=== PATIENT | male | born 1960 | race Caucasian/White ===

== ENCOUNTER → 2018-12-17 | Outpatient (CLI) | payer MEDICAID | END | disposition home or self-care (01) | LOC: Rad HDHVI 15:27 | PROVIDERS: ATTEND Internal Medicine | DX: J44.9 Chronic obstructive pulmonary disease, unspecified (principal); I50.9 Heart failure, unspecified; R07.9 Chest pain, unspecified | CPT/HCPCS: 93306 ==

== ENCOUNTER → 2019-02-04 | Outpatient (CLI) | payer MEDICAID ==
[~2019-02-04] VITALS: Ht 180.3 cm; Wt 77.6 kg
[~2019-02-04] MED LIST: ADENOSINE 65 MG in GIVE UN-DILUTED 0 ML IV ONE; ADENOSINE 90 MG/30 ML INJ IV ONE
== END | disposition home or self-care (01) ==
LOC: Rad HDHVI 09:08
PROVIDERS: ATTEND Internal Medicine
DX: R00.2 Palpitations (principal); I11.0 Hypertensive heart disease with heart failure; I50.9 Heart failure, unspecified; J44.9 Chronic obstructive pulmonary disease, unspecified; K21.9 Gastro-esophageal reflux disease without esophagitis; E78.5 Hyperlipidemia, unspecified
CPT/HCPCS: 78452; 93005; 96374; 96375; A9500; J0153

== ENCOUNTER → 2019-06-08 | Outpatient (CLI) | payer MEDICAID ==
[~2019-06-08] MED LIST changes: -ADENOSINE 65 MG in GIVE UN-DILUTED 0 ML IV ONE; -ADENOSINE 90 MG/30 ML INJ IV ONE; +ALBUAER3 IN; +ASPI-231 PO; +FLU220IH IN; +FLUO20CA19 PO; +OMEP20TA PO; +ONDA-144 PO
[2019-06-08 09:55] VITALS: BP 96/75
[2019-06-08 10:17] VITALS: BP 125/87
--- NOTE | 2019-06-08 10:17 | NUR ---
Pre-Op Discharge Summary: See e-MAR for any medications given for this visit. Pre-op orders received and carried out per MD of EKG, LABS and chest xrays. Patient given a copy of EKG with instructions to go to [facility] out patient for further follow up care.
[2019-06-08 12:26] LABS: Basophils # (auto) 0 uL; Eosinophils # (auto) 0 uL; Eosinophils % (auto) 0.8 % (0.0-7.0); Lymphocytes # (auto) 1.5 uL; Lymphocytes % (auto) 41.6 % (10.0-50.0); White Blood Cell 3.5 10^3/uL (4.4-10.8)
[2019-06-08 12:28] LABS: Hematocrit 37.6 % (41.0-53.0); Hemoglobin 13.1 g/dL (13.5-17.5); Mean Corpuscular Hemoglobin 39.3 pg (28.0-32.0); Mean Corpuscular Hgb Conc. 34.9 g/dL (32.0-36.0); Mean Corpuscular Volume 112.5 fL (80.0-100.0); Monocytes # (auto) 0.4 uL; Monocytes % (auto) 10.5 % (0.0-12.0); Neutrophils # (auto) 1.6 uL; Neutrophils % (auto) 46.1 % (37.0-80.0); Nucleated Red Blood Cells % 1.4 %; Platelet Count (auto) 149 10^3/uL (140-450); Red Blood Cells 3.34 10^6/uL (4.5-5.90)
[2019-06-08 12:37] LABS: INR 0.95 (0.9-1.15); Partial Thromboplastin Time 25.1 sec (23.64-32.05)
[2019-06-08 12:40] LABS: BUN/Creatinine Ratio 11.7; Calcium 8.8 mg/dL (8.5-10.1); Potassium 3.2 mmol/L (3.5-5.1)
== END | disposition home or self-care (01) ==
LOC: Rad HDHVI 09:33
PROVIDERS: ATTEND Internal Medicine
DX: Z01.812 Encounter for preprocedural laboratory examination (principal); I70.0 Atherosclerosis of aorta; I25.10 Atherosclerotic heart disease of native coronary artery without angina pectoris; J44.9 Chronic obstructive pulmonary disease, unspecified; I10 Essential (primary) hypertension
CPT/HCPCS: 36415; 71046; 80048; 85025; 85610; 85730; 93005; G0463

== ENCOUNTER 2019-06-09 08:31 | Day surgery (SDC) | payer MEDICAID ==
[~2019-06-09] VITALS: Ht 180.3 cm; Wt 62.6 kg
[2019-06-09] MEDS ORDERED: LIDOCAINE 2%HCL (LOCAL ANESTH.) INJ 20ML MDV ONE (08:54)
[2019-06-09] MEDS ORDERED: IOHEXOL 350 MG/ML 100ML IJ ONE (08:54)
[2019-06-09] MEDS ORDERED: MIDAZOLAM HCL 1MG/1ML-2 ML VIAL ONE (09:01)
[2019-06-09] MEDS ORDERED: ANGIOMAX 250 MG VIAL IV ONE (09:01)
[2019-06-09] MEDS ORDERED: SODIUM CHL 0.9% 0 ML ONE (09:01)
[2019-06-09] MEDS ORDERED: fentaNYL CITRATE 100 MCG/2 ML VL ONE (09:01)
[2019-06-09] MEDS ORDERED: ONDANSETRON HCL 4 MG/2 ML VIAL IV PRN (10:00)
[2019-06-09] MEDS ORDERED: HYDROcodone-ACET 5/325MG TAB PO PRN (10:00)
[2019-06-09] MEDS ORDERED: ACETAMINOPHEN 500 MG TAB PO PRN (10:00)
[2019-06-09] MEDS ORDERED: SODIUM CHL 0.9% 1,000 ML IV ONE (10:00)
== END 2019-06-09 12:05 | disposition home or self-care (01) ==
LOC: CATH 08:31
PROVIDERS: ATTEND Internal Medicine
DX: I42.8 Other cardiomyopathies (principal); K44.9 Diaphragmatic hernia without obstruction or gangrene; J44.9 Chronic obstructive pulmonary disease, unspecified; M21.372 Foot drop, left foot; Z87.891 Personal history of nicotine dependence; Z79.82 Long term (current) use of aspirin; Z79.899 Other long term (current) drug therapy
CPT/HCPCS: 93005; 93458; C1760; C1894; J1644; J2250; J3010; J7030; Q9967; 99152; 99153

== ENCOUNTER 2019-09-06 18:22 | Emergency (ER) | payer MEDICAID ==
[~2019-09-06] VITALS: Ht 180.3 cm; Wt 59.4 kg
[2019-09-06] MEDS ORDERED: SODIUM CHLORIDE 0.9% 1,000 ML IVB ONE (18:45)
[2019-09-06] MEDS ORDERED: MORPHINE SULFATE 4 MG/ML SYR/VIAL IV ONE (19:00)
[2019-09-06] MEDS ORDERED: ONDANSETRON HCL 4 MG/2 ML VIAL IV ONE (19:00)
[2019-09-06 19:12] LABS: Basophils # (auto) 0.1 uL; Eosinophils # (auto) 0 uL; Eosinophils % (auto) 0.1 % (0.0-7.0); Monocytes # (auto) 0.5 uL; Nucleated Red Blood Cells % 0.2 %
[2019-09-06 19:14] LABS: Basophils % (auto) 1.1 % (0.0-2.0); Hematocrit 40.9 % (41.0-53.0); Hemoglobin 14.2 g/dL (13.5-17.5); Lymphocytes # (auto) 1.3 uL; Lymphocytes % (auto) 21.1 % (10.0-50.0); Mean Corpuscular Hgb Conc. 34.7 g/dL (32.0-36.0); Mean Corpuscular Volume 112.3 fL (80.0-100.0); Monocytes % (auto) 7.7 % (0.0-12.0); Neutrophils # (auto) 4.3 uL; Platelet Count (auto) 193 10^3/uL (140-450); Red Blood Cells 3.64 10^6/uL (4.5-5.90); Red Cell Distribution Width 13.6 % (11.8-14.3); White Blood Cell 6.2 10^3/uL (4.4-10.8)
[2019-09-06 19:27] LABS: Albumin 3.3 g/dL (3.4-5.0); BUN/Creatinine Ratio 10.3; Calcium 9.2 mg/dL (8.5-10.1); Potassium 3.4 mmol/L (3.5-5.1)
[2019-09-06 19:31] LABS: Bilirubin, Total 0.6 mg/dL (0.2-1.0); Total Protein 7.7 g/dL (6.4-8.2)
[2019-09-06] MEDS ORDERED: PANTOPRAZOLE 40 MG/10 ML VIAL INJ IV ONE (19:45)
[2019-09-06 21:38] VITALS: BP 134/94
== END 2019-09-06 22:18 | disposition home or self-care (01) ==
LOC: ER 18:23
DX: K29.70 Gastritis, unspecified, without bleeding (principal); F10.129 Alcohol abuse with intoxication, unspecified; J44.9 Chronic obstructive pulmonary disease, unspecified; I10 Essential (primary) hypertension; R11.2 Nausea with vomiting, unspecified; Y90.9 Presence of alcohol in blood, level not specified
CPT/HCPCS: 36415; 76705; 80053; 80320; 83690; 85025; 93005; 96361; 96374; 96375; 99284; C9113; J2270; J2405

== ENCOUNTER 2020-01-22 11:45 | Inpatient (IN) | payer MEDICAID ==
[~2020-01-22] VITALS: Ht 180.3 cm; Wt 68.5 kg
[2020-01-22 13:21] LABS: Basophils # (auto) 0 10 ^3/uL (0-0.2); Eosinophils # (auto) 0 10 ^3/uL (0-0.8); Eosinophils % (auto) 0.7 % (0.0-7.0); Lymphocytes # (auto) 1.1 10 ^3/uL (0.4-5.4); Mean Corpuscular Volume 107.6 fL (80.0-100.0); Monocytes # (auto) 0.4 10 ^3/uL (0-1.3); Nucleated Red Blood Cells % 0.1 %
[2020-01-22 13:23] LABS: Basophils % (auto) 0.6 % (0.0-2.0); Hematocrit 38.1 % (41.0-53.0); Hemoglobin 13.1 g/dL (13.5-17.5); Lymphocytes % (auto) 22.2 % (10.0-50.0); Mean Corpuscular Hgb Conc. 34.4 g/dL (32.0-36.0); Monocytes % (auto) 7.2 % (0.0-12.0); Neutrophils # (auto) 3.6 10 ^3/uL (1.6-8.6); Neutrophils % (auto) 69.3 % (37.0-80.0); Platelet Count (auto) 103 10^3/uL (140-450); Red Blood Cells 3.54 10^6/uL (4.5-5.90); Red Cell Distribution Width 13.6 % (11.8-14.3); White Blood Cell 5.2 10^3/uL (4.4-10.8)
[2020-01-22 13:40] LABS: Albumin 3.3 g/dL (3.4-5.0); Anion Gap 8 (5-15); Blood Urea Nitrogen 19 mg/dL (7-18); Calcium 9.1 mg/dL (8.5-10.1); Carbon Dioxide 26 mmol/L (21-32); Chloride 103 mmol/L (98-107); Glucose 93 mg/dL (74-106); Magnesium 1.8 mg/dL (1.6-2.6); Potassium 3.3 mmol/L (3.5-5.1); Sodium 137 mmol/L (136-145)
[2020-01-22 13:45] LABS: Alanine Aminotransferase 299 U/L (16-61); Alkaline Phosphatase 72 U/L (45-117); Aspartate Aminotransferase 316 U/L (15-37); BUN/Creatinine Ratio 23.2; Bilirubin, Total 1.3 mg/dL (0.2-1.0); GFR African American 123 mL/min; GFR Non-African American 102 mL/min; Total Protein 7.5 g/dL (6.4-8.2)
[2020-01-22] MEDS ORDERED: HYDROcodone-ACET 5/325MG TAB PO ONE (15:00)
[2020-01-22] MEDS ORDERED: ASPirin 81 mg TAB PO ONE (15:00)
[2020-01-22 15:28] LABS: Urine Bacteria NONE SEEN /hpf (None Seen); Urine Blood Negative /uL (Negative); Urine Mucus FEW (None Seen); Urine Specific Gravity 1.038 (1.001-1.035); Urine WBC 1 /hpf (0 - 3)
[2020-01-22] MEDS ORDERED: POTASSIUM CHL 20 Meq TABLET PO ONE (15:30)
[2020-01-22] MEDS ORDERED: DOCUSATE SOD 100 MG CAP PO PRN (17:45)
[2020-01-22] MEDS ORDERED: ACETAMINOPHEN 500 MG TAB PO PRN (17:45)
[2020-01-22] MEDS ORDERED: MORPHINE SULF INJ 2 MG/ML SYRINGE 1ML IV PRN (17:45)
[2020-01-22] MEDS ORDERED: ONDANSETRON HCL 4 MG/2 ML VIAL IV PRN (17:45)
[2020-01-22] MEDS ORDERED: SOD CHL 0.9%/ KCL 20MEQ 1,000 ML IV ONE (17:45)
[2020-01-22] MEDS ORDERED: NITROGLYCERIN 0.4 MG SL TAB SL PRN (17:45)
[2020-01-22 19:40] VITALS: BP 126/96
[2020-01-22 20:00] VITALS: BP 112/76
[2020-01-22 21:55] VITALS: BP 112/76
[2020-01-22] MEDS: BUDESONIDE (INHALATION) 0.5 MG/2 ML NEB NEB SCH (22:28)
[2020-01-23 04:49] VITALS: BP 142/91
[2020-01-23] MEDS: HYDROcodone-ACET 5/325MG TAB PO PRN ×3 (06:22→22:23)
[2020-01-23 08:37] VITALS: BP 158/99
[2020-01-23] MEDS: FAMOTIDINE 20 MG TAB PO SCH (09:12)
[2020-01-23] MEDS: BUDESONIDE (INHALATION) 0.5 MG/2 ML NEB NEB SCH ×2 (09:17→22:13)
[2020-01-23] MEDS: ALBUTEROL SULF 2.5 MG/0.5ML(0.5%) NEB SOLN NEB PRN ×2 (09:29→22:13)
[2020-01-23] MEDS: IPRATROPIUM BROM 0.5 MG/2.5ML INH SOL NEB PRN ×2 (09:29→22:13)
[2020-01-23 12:46] VITALS: BP 145/96
[2020-01-23] MEDS ORDERED: hydrALAZINE HCL 20 MG/ML VL IV PRN (15:00)
[2020-01-23 16:41] VITALS: BP 104/56
[2020-01-23] MEDS: SUCRALFATE 1 GM/10 ML ORAL SUSP PO SCH ×2 (17:11→21:52)
[2020-01-23 22:00] VITALS: BP 148/91
[2020-01-24 05:00] VITALS: BP 111/92
[2020-01-24 05:23] LABS: Basophils # (auto) 0 10 ^3/uL (0-0.2); Lymphocytes # (auto) 1.2 10 ^3/uL (0.4-5.4); Mean Corpuscular Volume 108.7 fL (80.0-100.0); Monocytes # (auto) 0.5 10 ^3/uL (0-1.3); Neutrophils # (auto) 2.5 10 ^3/uL (1.6-8.6)
[2020-01-24 05:26] LABS: Eosinophils # (auto) 0 10 ^3/uL (0-0.8); Eosinophils % (auto) 1.1 % (0.0-7.0); Hematocrit 36.8 % (41.0-53.0); Hemoglobin 12.7 g/dL (13.5-17.5); Lymphocytes % (auto) 27.4 % (10.0-50.0); Mean Corpuscular Hemoglobin 37.6 pg (28.0-32.0); Mean Corpuscular Hgb Conc. 34.6 g/dL (32.0-36.0); Monocytes % (auto) 12.2 % (0.0-12.0); Neutrophils % (auto) 58.3 % (37.0-80.0); Platelet Count (auto) 102 10^3/uL (140-450); Red Blood Cells 3.39 10^6/uL (4.5-5.90); Red Cell Distribution Width 13.5 % (11.8-14.3); White Blood Cell 4.3 10^3/uL (4.4-10.8)
[2020-01-24 05:42] LABS: Calcium 8.8 mg/dL (8.5-10.1); Potassium 4.2 mmol/L (3.5-5.1)
[2020-01-24 05:48] LABS: BUN/Creatinine Ratio 17.9; Phosphorus 3.6 mg/dL (2.5-4.90)
[2020-01-24] MEDS: SUCRALFATE 1 GM/10 ML ORAL SUSP PO SCH ×4 (06:59→21:12)
[2020-01-24 07:27] VITALS: BP 151/104
[2020-01-24] MEDS: FAMOTIDINE 20 MG TAB PO SCH (08:47)
[2020-01-24] MEDS: HYDROcodone-ACET 5/325MG TAB PO PRN (08:48)
[2020-01-24] MEDS: IPRATROPIUM BROM 0.5 MG/2.5ML INH SOL NEB PRN ×2 (10:22→22:48)
[2020-01-24] MEDS: BUDESONIDE (INHALATION) 0.5 MG/2 ML NEB NEB SCH ×2 (10:22→22:48)
[2020-01-24] MEDS: ALBUTEROL SULF 2.5 MG/0.5ML(0.5%) NEB SOLN NEB PRN ×2 (10:22→22:48)
[2020-01-24] MEDS ORDERED: OMNIPAQUE ORAL SOLN 500ml 12mg/ml PO ONE (12:40)
[2020-01-24] MEDS ORDERED: IOHEXOL 300 MG/ML 100ML BOTTLE IJ ONE (12:41)
[2020-01-24 13:00] VITALS: BP 143/104
[2020-01-24 17:10] VITALS: BP 158/97
[2020-01-24] MEDS: MORPHINE SULF INJ 2 MG/ML SYRINGE 1ML IV PRN (21:12)
[2020-01-24 22:00] VITALS: BP 151/107
[2020-01-25] VITALS (7 sets, daily range): BP systolic 140–153; BP diastolic 93–108
[2020-01-25 05:11] LABS: Basophils # (auto) 0 10 ^3/uL (0-0.2); Basophils % (auto) 0.9 % (0.0-2.0); Eosinophils # (auto) 0 10 ^3/uL (0-0.8); Hematocrit 38.7 % (41.0-53.0); Lymphocytes # (auto) 1.2 10 ^3/uL (0.4-5.4); Mean Corpuscular Hemoglobin 36.9 pg (28.0-32.0); Neutrophils # (auto) 2.3 10 ^3/uL (1.6-8.6); White Blood Cell 4.1 10^3/uL (4.4-10.8)
[2020-01-25 05:13] LABS: Eosinophils % (auto) 0.8 % (0.0-7.0); Hemoglobin 13.1 g/dL (13.5-17.5); Lymphocytes % (auto) 29.2 % (10.0-50.0); Mean Corpuscular Hgb Conc. 33.9 g/dL (32.0-36.0); Mean Corpuscular Volume 108.7 fL (80.0-100.0); Monocytes # (auto) 0.6 10 ^3/uL (0-1.3); Monocytes % (auto) 13.6 % (0.0-12.0); Neutrophils % (auto) 55.5 % (37.0-80.0); Nucleated Red Blood Cells % 0.1 %; Platelet Count (auto) 139 10^3/uL (140-450); Red Blood Cells 3.56 10^6/uL (4.5-5.90); Red Cell Distribution Width 13.8 % (11.8-14.3)
[2020-01-25 05:34] LABS: Albumin 3.3 g/dL (3.4-5.0); Calcium 9.4 mg/dL (8.5-10.1); Magnesium 2.1 mg/dL (1.6-2.6); Potassium 4.3 mmol/L (3.5-5.1)
[2020-01-25 05:36] LABS: BUN/Creatinine Ratio 16.5
[2020-01-25 05:39] LABS: Total Protein 7.5 g/dL (6.4-8.2)
[2020-01-25] MEDS: IPRATROPIUM BROM 0.5 MG/2.5ML INH SOL NEB PRN (06:05)
[2020-01-25] MEDS: BUDESONIDE (INHALATION) 0.5 MG/2 ML NEB NEB SCH ×2 (06:06→19:28)
[2020-01-25] MEDS: ALBUTEROL SULF 2.5 MG/0.5ML(0.5%) NEB SOLN NEB PRN (06:06)
[2020-01-25] MEDS: SUCRALFATE 1 GM/10 ML ORAL SUSP PO SCH ×4 (06:33→22:34)
[2020-01-25 09:03] LABS: INR 1.03 (0.9-1.15); Partial Thromboplastin Time 25.4 sec (23.64-32.05)
[2020-01-25] MEDS ORDERED: ADENOSINE 61 MG in GIVE UN-DILUTED 0 ML IV STA (09:26)
[2020-01-25] MEDS: METOPROLOL TARTRATE 25 MG TAB PO SCH ×2 (10:41→22:34)
[2020-01-25] MEDS: FAMOTIDINE 20 MG TAB PO SCH (10:41)
[2020-01-25 14:03] LABS: Hepatitis A Ab IgM Negative; Hepatitis B Core IgM Negative
[2020-01-25 14:04] LABS: Hepatitis B Surface Antigen Negative (Negative)
[2020-01-25 14:05] LABS: Hepatitis C Antibody Positive (Negative)
[2020-01-25 18:24] LABS: Amphetamine Screen, Urine NEGATIVE (NEGATIVE); Barbiturate Scree,Urine NEGATIVE (NEGATIVE); Benzodiazephine Screen, Urine NEGATIVE (NEGATIVE); Cannabinoid Screen, Urine NEGATIVE (NEGATIVE); Cocaine Screen, Urine NEGATIVE (NEGATIVE); Opiate Scree,Urine NEGATIVE (NEGATIVE); Phencyclidine Screen, Urine NEGATIVE (NEGATIVE)
[2020-01-25] MEDS ORDERED: ATORVASTATIN 20 MG TAB PO SCH (22:00)
[2020-01-26 01:55] VITALS: BP 140/98
[2020-01-26 05:08] VITALS: BP 125/101
[2020-01-26 06:04] LABS: Potassium 4.3 mmol/L (3.5-5.1)
[2020-01-26 06:18] LABS: Albumin 3.3 g/dL (3.4-5.0); BUN/Creatinine Ratio 20.9; Calcium 9.5 mg/dL (8.5-10.1); Total Protein 7.5 g/dL (6.4-8.2)
[2020-01-26] MEDS: SUCRALFATE 1 GM/10 ML ORAL SUSP PO SCH ×2 (06:36→14:20)
[2020-01-26] MEDS: BUDESONIDE (INHALATION) 0.5 MG/2 ML NEB NEB SCH (06:59)
[2020-01-26] MEDS ORDERED: SODIUM CHLORIDE LOCK 10 ML ONE (08:24)
[2020-01-26] MEDS ORDERED: LIDOCAINE VISCOUS 2% 15ML UD ONE (08:24)
[2020-01-26] MEDS ORDERED: diphenhdrAMINE HCL 50 MG/1 ML VL ONE (08:25)
[2020-01-26] MEDS: MORPHINE SULF INJ 2 MG/ML SYRINGE 1ML IV PRN (08:47)
[2020-01-26 09:00] VITALS: BP 125/95
[2020-01-26 13:00] VITALS: BP 137/83
[2020-01-26] MEDS: MIDAZOLAM HCL 5 MG/ML-1ML VIAL ONE ×2 (13:22→13:25)
[2020-01-26] MEDS: fentaNYL CITRATE 100 MCG/2 ML VL ONE ×2 (13:22→13:24)
[2020-01-26] MEDS: METOPROLOL TARTRATE 25 MG TAB PO SCH (14:19)
[2020-01-26] MEDS: FAMOTIDINE 20 MG TAB PO SCH (14:19)
[2020-01-26 15:50] VITALS: BP 127/95
[2020-01-26] MEDS ORDERED: NYSTATIN (MOUTH-THROAT) 500,000 UNITS/5 ML SUSP MT SCH (18:00)
== END 2020-01-26 16:17 | disposition home or self-care (01) | DRG 241 ==
LOC: ER 11:45 → TELE 11:46 → TELE-WESTW 19:45
PROVIDERS: ADMIT Nurse Practitioner Acute Care; ATTEND Internal Medicine
PROC: 0DB88ZX Excision of Small Intestine, Via Natural or Artificial Opening Endoscopic, Diagnostic (ICD-10-PCS; 2020-01-26)
PROC: 0DB68ZX Excision of Stomach, Via Natural or Artificial Opening Endoscopic, Diagnostic (ICD-10-PCS; 2020-01-26)
PROC: 0DB58ZX Excision of Esophagus, Via Natural or Artificial Opening Endoscopic, Diagnostic (ICD-10-PCS; principal; 2020-01-26 13:30)
DX: K29.70 Gastritis, unspecified, without bleeding (principal); B37.81 Candidal esophagitis; D69.6 Thrombocytopenia, unspecified; R07.89 Other chest pain; K20.9 Esophagitis, unspecified; J44.9 Chronic obstructive pulmonary disease, unspecified; D53.9 Nutritional anemia, unspecified; E87.6 Hypokalemia; I10 Essential (primary) hypertension; K29.80 Duodenitis without bleeding; B19.20 Unspecified viral hepatitis C without hepatic coma; K21.9 Gastro-esophageal reflux disease without esophagitis; F41.9 Anxiety disorder, unspecified; F32.9 Major depressive disorder, single episode, unspecified; Z79.899 Other long term (current) drug therapy; Z79.82 Long term (current) use of aspirin; Z79.51 Long term (current) use of inhaled steroids; Z90.49 Acquired absence of other specified parts of digestive tract; Z87.891 Personal history of nicotine dependence; Z82.3 Family history of stroke; Z82.49 Family history of ischemic heart disease and other diseases of the circulatory system; Z03.818 Encounter for observation for suspected exposure to other biological agents ruled out
CPT/HCPCS: 36415; 71045; 74177; 76705; 78452; 80053; 80074; 80307; 81001; 83605; 83735; 83880; 84100; 84484; 85025; 85379; 85610; 85730; 86850; 86900; 86901; 87040; 87070; 87804; 87880; 93005; 93017; 93306; 94640; 96365; G0378; J0153; J2250; J2405

== ENCOUNTER → 2020-11-08 | Outpatient (CLI) | payer MEDICAID ==
[~2020-11-08] MED LIST changes: -OMEP20TA PO
== END | disposition home or self-care (01) ==
LOC: Rad HDHVI 10:07
PROVIDERS: ATTEND Internal Medicine
DX: I07.1 Rheumatic tricuspid insufficiency (principal); I35.8 Other nonrheumatic aortic valve disorders; I10 Essential (primary) hypertension; R07.9 Chest pain, unspecified
CPT/HCPCS: 93306

== ENCOUNTER → 2020-11-14 | Outpatient (CLI) | payer MEDICAID ==
[~2020-11-14] VITALS: Ht 180.3 cm; Wt 68.5 kg
[~2020-11-14] MED LIST changes: +ADENOSINE 58 MG in GIVE UN-DILUTED 0 ML IV ONE; +ADENOSINE 90 MG/30 ML INJ IV ONE
== END | disposition home or self-care (01) ==
LOC: Rad HDHVI 12:53
PROVIDERS: ATTEND Internal Medicine
DX: I11.0 Hypertensive heart disease with heart failure (principal); J98.11 Atelectasis; I27.20 Pulmonary hypertension, unspecified; I50.9 Heart failure, unspecified; R06.02 Shortness of breath; E78.5 Hyperlipidemia, unspecified; Z82.49 Family history of ischemic heart disease and other diseases of the circulatory system
CPT/HCPCS: 71046; 78452; 93005; 96374; 96375; A9500; J0153

== ENCOUNTER 2021-05-23 07:10 | Day surgery (SDC) | payer MEDICAID ==
[~2021-05-23] VITALS: Ht 180.3 cm; Wt 59.4 kg
[~2021-05-23 07:10] MED LIST changes: +ACLI1AER2 IN; -ADENOSINE 58 MG in GIVE UN-DILUTED 0 ML IV ONE; -ADENOSINE 90 MG/30 ML INJ IV ONE; +AMLO-489 PO; +ASCO100076 PO; -ASPI-231 PO; +ASPI-543 PO; +ATEN-60 PO; +CLON0.1T PO; +FLUO1TAB14 PO; -FLUO20CA19 PO; +HYDR-4072 PO; +LOSA-39 PO; +OMEP20TA PO; +POM PO; +RANO500T2 PO; +SENN8.6C PO; +ZINC50TA7 PO
[2021-05-23] MEDS ORDERED: IODIXANOL 320MG/ML 100ML BTL IV ONE (08:05)
[2021-05-23] MEDS ORDERED: LIDOCAINE 2%HCL (LOCAL ANESTH.) INJ 20ML MDV ONE (08:06)
[2021-05-23] MEDS ORDERED: fentaNYL CITRATE 100 MCG/2 ML VL ONE (08:09)
[2021-05-23] MEDS ORDERED: ANGIOMAX 250 MG VIAL IV ONE (08:09)
[2021-05-23] MEDS ORDERED: VERAPAMIL 2.5MG/ML INJ 2ML VIAL IV ONE (08:09)
[2021-05-23] MEDS ORDERED: HEPARIN SODIUM (PORCINE) 5000 UNITS/ML 1ML VIAL ONE (08:09)
[2021-05-23] MEDS ORDERED: MIDAZOLAM HCL 2MG/2ML 2ml VIAL (1mg/ml) ONE (08:10)
[2021-05-23] MEDS ORDERED: SODIUM CHL 0.9% 0 ML ONE (08:10)
[2021-05-23] MEDS ORDERED: ACETAMINOPHEN 500 MG TAB PO PRN (09:15)
[2021-05-23] MEDS ORDERED: HYDROcodone-ACET 5/325MG TAB PO PRN (09:15)
[2021-05-23] MEDS ORDERED: ONDANSETRON HCL 4 MG/2 ML VIAL IV PRN (09:15)
== END 2021-05-23 12:47 | disposition home or self-care (01) ==
LOC: CATH 07:10
PROVIDERS: ATTEND Internal Medicine
DX: R07.9 Chest pain, unspecified (principal); I25.10 Atherosclerotic heart disease of native coronary artery without angina pectoris; J43.9 Emphysema, unspecified; I10 Essential (primary) hypertension; E78.5 Hyperlipidemia, unspecified; F17.210 Nicotine dependence, cigarettes, uncomplicated; Z95.5 Presence of coronary angioplasty implant and graft; Z82.49 Family history of ischemic heart disease and other diseases of the circulatory system; Z20.822 Contact with and (suspected) exposure to COVID-19; Z98.890 Other specified postprocedural states; Z79.899 Other long term (current) drug therapy
CPT/HCPCS: 93458; C1769; C1887; C1894; J1644; J2250; J3010; J7030; Q9967; U0003; 99152

== ENCOUNTER → 2021-07-17 | Outpatient (CLI) | payer MEDICAID ==
[~2021-07-17] MED LIST changes: +MULTIPLE VIT 10 ML IV ONE; +MVI in SODIUM CHLORIDE 0.9% 500 ML IVB ONE; +ONDANSETRON HCL 4 MG/2 ML VIAL IM ONE; +ONDANSETRON HCL 4 MG/2 ML VIAL IV ONE; +ONDANSETRON HCL 4 MG/2 ML VIAL ONE
[2021-07-17 09:39] VITALS: BP 147/103
[2021-07-17 10:40] VITALS: BP 128/93
[2021-07-17 12:15] VITALS: BP 136/98
== END | disposition home or self-care (01) ==
LOC: CHF HDHVI 09:40
PROVIDERS: ATTEND Internal Medicine
DX: E86.0 Dehydration (principal); R53.83 Other fatigue; R11.0 Nausea; I10 Essential (primary) hypertension; I25.10 Atherosclerotic heart disease of native coronary artery without angina pectoris; J43.9 Emphysema, unspecified; E78.5 Hyperlipidemia, unspecified; Z79.899 Other long term (current) drug therapy; Z87.891 Personal history of nicotine dependence; Z95.5 Presence of coronary angioplasty implant and graft
CPT/HCPCS: 96365; 96366; 96375; G0463; J2405; J7040

== ENCOUNTER → 2021-09-04 | Outpatient (CLI) | payer MEDICAID ==
[~2021-09-04] MED LIST changes: -MULTIPLE VIT 10 ML IV ONE; -MVI in SODIUM CHLORIDE 0.9% 500 ML IVB ONE; -ONDANSETRON HCL 4 MG/2 ML VIAL IM ONE; -ONDANSETRON HCL 4 MG/2 ML VIAL IV ONE; -ONDANSETRON HCL 4 MG/2 ML VIAL ONE
== END | disposition home or self-care (01) ==
LOC: Rad HDHVI 08:28
PROVIDERS: ATTEND Internal Medicine
DX: I71.2 Thoracic aortic aneurysm, without rupture (principal); R00.2 Palpitations; R07.9 Chest pain, unspecified
CPT/HCPCS: 93306

== ENCOUNTER 2022-06-04 14:42 | Emergency (ER) | payer MEDICAID | END 2022-06-04 16:00 | disposition left against medical advice (07) | LOC: ER 14:42 | DX: R10.9 Unspecified abdominal pain (principal); Z53.21 Procedure and treatment not carried out due to patient leaving prior to being seen by health care provider ==

== ENCOUNTER 2022-06-08 14:19 | Inpatient (IN) | payer MEDICAID ==
[~2022-06-08] VITALS: Ht 180.3 cm; Wt 64.5 kg
[2022-06-08 14:56] LABS: Basophils # (auto) 0 10 ^3/uL (0-0.2); Basophils % (auto) 0.3 % (0.0-2.0); Eosinophils # (auto) 0 10 ^3/uL (0-0.8); Hematocrit 46.3 % (41.0-53.0); Hemoglobin 15.8 g/dL (13.5-17.5); Lymphocytes # (auto) 1.3 10 ^3/uL (0.4-5.4); Lymphocytes % (auto) 8.4 % (10.0-50.0); Mean Corpuscular Hemoglobin 36.8 pg (28.0-32.0); Mean Corpuscular Hgb Conc. 34.1 g/dL (32.0-36.0); Monocytes # (auto) 0.8 10 ^3/uL (0-1.3); Monocytes % (auto) 5.1 % (0.0-12.0); Neutrophils % (auto) 86.2 % (37.0-80.0); Red Blood Cells 4.29 10^6/uL (4.5-5.90); Red Cell Distribution Width 14.3 % (11.8-14.3); White Blood Cell 15.1 10^3/uL (4.4-10.8)
[2022-06-08 15:16] LABS: Albumin 4.2 g/dL (3.4-5.0); Calcium 10.8 mg/dL (8.5-10.1); Potassium 4.2 mmol/L (3.5-5.1)
[2022-06-08 15:19] LABS: BUN/Creatinine Ratio 22.7; Bilirubin, Total 1.3 mg/dL (0.2-1.0); Total Protein 8.9 g/dL (6.4-8.2)
[2022-06-08] MEDS ORDERED: FAMOTIDINE (10MG/ML) 2ML VL IV ONE (15:45)
[2022-06-08] MEDS ORDERED: ONDANSETRON ODT 4 MG TAB PO ONE (15:45)
[2022-06-08] MEDS ORDERED: ACETAMINOPHEN 325 MG TAB PO PRN (19:45)
[2022-06-08] MEDS ORDERED: CEFTRIAXONE SODIUM 2 GM in D5W 5% 50 ML IV ONE (19:45)
[2022-06-08] MEDS ORDERED: ALBUTEROL SULF 2.5 MG/0.5ML(0.5%) NEB SOLN NEB PRN (19:45)
[2022-06-08] MEDS ORDERED: SODIUM CHLORIDE 0.9% 1,000 ML IV SCH (19:45)
[2022-06-08] MEDS ORDERED: FAMOTIDINE 20 MG TAB PO ONE (19:45)
[2022-06-08] MEDS ORDERED: cloNIDine HCL 0.1 MG TAB PO PRN (19:45)
[2022-06-08] MEDS ORDERED: ONDANSETRON HCL 4 MG/2 ML VIAL IV PRN (19:45)
[2022-06-08] MEDS ORDERED: DOCUSATE SOD 100 MG CAP PO PRN (19:45)
[2022-06-08] MEDS ORDERED: ALBUTEROL SULF 2.5 MG/0.5ML(0.5%) NEB SOLN NEB SCH (20:00)
[2022-06-08 20:18] VITALS: BP 136/95
[2022-06-08 20:38] LABS: Cholesterol 233 mg/dL (< 200)
[2022-06-08 20:41] LABS: HDL Cholesterol 126 mg/dL (40-59); LDL Cholesterol 101 mg/dL (< 100); Triglycerides 106 mg/dL (< 150)
[2022-06-08] MEDS ORDERED: methylPREDNISolone SOD SUCC 40 MG/ML VL IV SCH (22:00)
[2022-06-09] MEDS ORDERED: ALBUTEROL SULF 2.5 MG/0.5ML(0.5%) NEB SOLN NEB SCH
[2022-06-09] MEDS: SODIUM CHLORIDE 0.9% 1,000 ML IV SCH ×4 (00:15→18:40)
[2022-06-09] MEDS: methylPREDNISolone SOD SUCC 40 MG/ML VL IV SCH ×4 (00:21→22:18)
[2022-06-09] MEDS: ASCORBIC ACID 1,000 MG TAB PO SCH ×3 (00:21→22:19)
[2022-06-09] MEDS: ATENOLOL 25 MG TAB PO SCH ×2 (00:22→09:37)
[2022-06-09] MEDS: RANOLAZINE ER 500 MG TAB PO SCH ×3 (00:22→22:19)
[2022-06-09] MEDS ORDERED: MORPHINE SULFATE INJ 2 MG/ml SYRG IV PRN (01:30)
[2022-06-09] MEDS ORDERED: NITROGLYCERIN 0.4 MG SL TAB SL PRN (01:30)
[2022-06-09 02:30] LABS: Urine Bacteria NONE SEEN /hpf (None Seen); Urine Blood Negative /uL (Negative); Urine Hyaline Cast FEW /lpf (0 - 2); Urine Mucus FEW (None Seen); Urine Specific Gravity 1.014 (1.001-1.035); Urine WBC <1 /hpf (0 - 3)
[2022-06-09 05:18] LABS: Basophils # (auto) 0 10 ^3/uL (0-0.2); Basophils % (auto) 0.1 % (0.0-2.0); Eosinophils # (auto) 0 10 ^3/uL (0-0.8); Hematocrit 41.8 % (41.0-53.0); Hemoglobin 14.7 g/dL (13.5-17.5); Lymphocytes # (auto) 0.5 10 ^3/uL (0.4-5.4); Lymphocytes % (auto) 5.3 % (10.0-50.0); Mean Corpuscular Hemoglobin 38.1 pg (28.0-32.0); Mean Corpuscular Hgb Conc. 35.2 g/dL (32.0-36.0); Mean Corpuscular Volume 108.1 fL (80.0-100.0); Monocytes # (auto) 0.2 10 ^3/uL (0-1.3); Monocytes % (auto) 2.1 % (0.0-12.0); Neutrophils # (auto) 9.6 10 ^3/uL (1.6-8.6); Neutrophils % (auto) 92.5 % (37.0-80.0); Red Blood Cells 3.86 10^6/uL (4.5-5.90); Red Cell Distribution Width 14.3 % (11.8-14.3); White Blood Cell 10.4 10^3/uL (4.4-10.8)
[2022-06-09 05:34] LABS: Albumin 3.8 g/dL (3.4-5.0); Calcium 10.6 mg/dL (8.5-10.1); Potassium 4.8 mmol/L (3.5-5.1)
[2022-06-09 05:37] LABS: BUN/Creatinine Ratio 33.9; Bilirubin, Total 0.9 mg/dL (0.2-1.0); Total Protein 8.6 g/dL (6.4-8.2)
[2022-06-09] MEDS: ALBUTEROL SULF 2.5 MG/0.5ML(0.5%) NEB SOLN NEB SCH ×4 (06:15→18:54)
[2022-06-09] MEDS: IPRATROPIUM BROM 0.5 MG/2.5ML INH SOL NEB SCH ×4 (06:15→18:54)
[2022-06-09] MEDS ORDERED: LOSARTAN POTASSIUM 50 MG TAB PO SCH (10:00)
[2022-06-09] MEDS ORDERED: CEFTRIAXONE SODIUM 2 GM in D5W 5% 50 ML IV SCH (10:00)
[2022-06-09] MEDS ORDERED: ENOXAPARIN SOD 40 MG/0.4 ML SYRINGE SC SCH (10:00)
[2022-06-09] MEDS ORDERED: amLODIPine BESYLATE 5 MG TAB PO SCH (10:00)
[2022-06-09] MEDS ORDERED: FLUoxetine HCL 20 MG CAP PO SCH (10:00)
[2022-06-09] MEDS ORDERED: ASPirin-EC 81 mg tab PO SCH (10:00)
[2022-06-09 22:25] VITALS: BP 127/85
[2022-06-10] MEDS: ALBUTEROL SULF 2.5 MG/0.5ML(0.5%) NEB SOLN NEB SCH ×3 (00:45→09:08)
[2022-06-10] MEDS: IPRATROPIUM BROM 0.5 MG/2.5ML INH SOL NEB SCH ×3 (00:45→09:08)
[2022-06-10] MEDS: SODIUM CHLORIDE 0.9% 1,000 ML IV SCH (01:20)
[2022-06-10 05:00] VITALS: BP 111/85
[2022-06-10] MEDS: methylPREDNISolone SOD SUCC 40 MG/ML VL IV SCH (05:59)
== END 2022-06-10 08:30 | disposition left against medical advice (07) | DRG 469 ==
LOC: ER 14:19 → OVERFLOW 06-09 01:18 → EAST 06-09 20:48
PROVIDERS: ADMIT Nurse Practitioner Family; ATTEND Nurse Practitioner Family
DX: N17.9 Acute kidney failure, unspecified (principal); K85.90 Acute pancreatitis without necrosis or infection, unspecified; K92.2 Gastrointestinal hemorrhage, unspecified; K76.0 Fatty (change of) liver, not elsewhere classified; E87.1 Hypo-osmolality and hyponatremia; Z99.81 Dependence on supplemental oxygen; I10 Essential (primary) hypertension; D72.829 Elevated white blood cell count, unspecified; E78.5 Hyperlipidemia, unspecified; E83.52 Hypercalcemia; R07.89 Other chest pain; I20.9 Angina pectoris, unspecified; Z53.29 Procedure and treatment not carried out because of patient's decision for other reasons; F32.A Depression, unspecified; F41.9 Anxiety disorder, unspecified; K21.9 Gastro-esophageal reflux disease without esophagitis; J44.9 Chronic obstructive pulmonary disease, unspecified; Z20.822 Contact with and (suspected) exposure to COVID-19; K80.20 Calculus of gallbladder without cholecystitis without obstruction; N40.0 Benign prostatic hyperplasia without lower urinary tract symptoms; Z79.899 Other long term (current) drug therapy; Z82.3 Family history of stroke; Z82.49 Family history of ischemic heart disease and other diseases of the circulatory system; Z87.891 Personal history of nicotine dependence; Z90.49 Acquired absence of other specified parts of digestive tract
CPT/HCPCS: 36415; 71046; 74176; 80053; 80061; 80320; 81001; 83690; 84443; 84484; 85025; 85049; 87040; 94640; 96365; 96372; 96375; G0378; J0696; J2405; J7060; Q0162

== ENCOUNTER 2022-06-11 14:46 | Inpatient (IN) | payer MEDICAID ==
[~2022-06-11] VITALS: Ht 180.3 cm; Wt 75.5 kg
[~2022-06-11 14:46] MED LIST changes: -ZINC50TA7 PO
[2022-06-11] MEDS ORDERED: SODIUM CHLORIDE 0.9% 500 ML IV ONE (15:15)
[2022-06-11 15:36] LABS: Basophils # (auto) 0 10 ^3/uL (0-0.2); Basophils % (auto) 0.4 % (0.0-2.0); Eosinophils # (auto) 0 10 ^3/uL (0-0.8); Eosinophils % (auto) 0.1 % (0.0-7.0); Hematocrit 42.5 % (41.0-53.0); Hemoglobin 14.4 g/dL (13.5-17.5); Lymphocytes # (auto) 1.4 10 ^3/uL (0.4-5.4); Lymphocytes % (auto) 17.6 % (10.0-50.0); Mean Corpuscular Hemoglobin 36.9 pg (28.0-32.0); Mean Corpuscular Hgb Conc. 33.9 g/dL (32.0-36.0); Mean Corpuscular Volume 108.7 fL (80.0-100.0); Monocytes # (auto) 0.6 10 ^3/uL (0-1.3); Monocytes % (auto) 7.9 % (0.0-12.0); Neutrophils # (auto) 5.8 10 ^3/uL (1.6-8.6); Nucleated Red Blood Cells % 0.1 %; Red Blood Cells 3.91 10^6/uL (4.5-5.90); Red Cell Distribution Width 14.1 % (11.8-14.3); White Blood Cell 7.9 10^3/uL (4.4-10.8)
[2022-06-11 15:49] LABS: INR 1.03 (0.9-1.15); Partial Thromboplastin Time 24.6 sec (24.6-33.4)
[2022-06-11 15:53] LABS: Albumin 3.4 g/dL (3.4-5.0); Calcium 10.1 mg/dL (8.5-10.1); Magnesium 2.9 mg/dL (1.6-2.6); Potassium 3.7 mmol/L (3.5-5.1)
[2022-06-11 15:56] LABS: BUN/Creatinine Ratio 29.8; Bilirubin, Total 0.8 mg/dL (0.2-1.0); Total Protein 7.2 g/dL (6.4-8.2)
[2022-06-11] MEDS ORDERED: ACETAMINOPHEN 325 MG TAB PO PRN (17:15)
[2022-06-11] MEDS ORDERED: ONDANSETRON HCL 4 MG/2 ML VIAL IV PRN (17:15)
[2022-06-11] MEDS ORDERED: PANTOPRAZOLE 40 MG/10 ML VIAL INJ IV ONE (17:15)
[2022-06-11] MEDS ORDERED: SODIUM CHLORIDE 0.9% 1,000 ML IV SCH (17:15)
[2022-06-11] MEDS ORDERED: ALBUTEROL SULF 2.5 MG/0.5ML(0.5%) NEB SOLN NEB PRN ×2 (18:15→19:15)
[2022-06-11] MEDS ORDERED: ALBUTEROL SULF 2.5 MG/0.5ML(0.5%) NEB SOLN NEB SCH (18:15)
[2022-06-11] MEDS ORDERED: cloNIDine HCL 0.1 MG TAB PO PRN (18:30)
[2022-06-11 20:12] VITALS: BP 147/105
[2022-06-11] MEDS: RANOLAZINE ER 500 MG TAB PO SCH (22:24)
[2022-06-11 22:25] VITALS: BP 150/95
[2022-06-11] MEDS: ATENOLOL 25 MG TAB PO SCH (22:25)
[2022-06-11] MEDS: ASCORBIC ACID 1,000 MG TAB PO SCH (22:25)
[2022-06-11] MEDS: MORPHINE SULFATE INJ 2 MG/ml SYRG IV PRN (22:26)
[2022-06-12] MEDS: IPRATROPIUM BROM 0.5 MG/2.5ML INH SOL NEB SCH ×4 (00:20→18:00)
[2022-06-12] MEDS: ALBUTEROL SULF 2.5 MG/0.5ML(0.5%) NEB SOLN NEB SCH ×4 (00:20→18:00)
[2022-06-12 05:00] VITALS: BP 107/78
[2022-06-12 06:22] LABS: Potassium 3.3 mmol/L (3.5-5.1)
[2022-06-12 06:24] LABS: Basophils # (auto) 0 10 ^3/uL (0-0.2); Eosinophils # (auto) 0 10 ^3/uL (0-0.8); Eosinophils % (auto) 0.4 % (0.0-7.0); Hematocrit 35.9 % (41.0-53.0); Hemoglobin 12.7 g/dL (13.5-17.5); Lymphocytes # (auto) 1.8 10 ^3/uL (0.4-5.4); Lymphocytes % (auto) 29.1 % (10.0-50.0); Mean Corpuscular Hemoglobin 38.3 pg (28.0-32.0); Mean Corpuscular Hgb Conc. 35.3 g/dL (32.0-36.0); Mean Corpuscular Volume 108.6 fL (80.0-100.0); Monocytes # (auto) 0.7 10 ^3/uL (0-1.3); Monocytes % (auto) 11.5 % (0.0-12.0); Neutrophils # (auto) 3.6 10 ^3/uL (1.6-8.6); Nucleated Red Blood Cells % 0.2 %; Red Blood Cells 3.31 10^6/uL (4.5-5.90); Red Cell Distribution Width 14.1 % (11.8-14.3); White Blood Cell 6.2 10^3/uL (4.4-10.8)
[2022-06-12 06:28] LABS: Albumin 2.7 g/dL (3.4-5.0); BUN/Creatinine Ratio 31.2; Calcium 8.4 mg/dL (8.5-10.1)
[2022-06-12 06:31] LABS: Bilirubin, Total 0.7 mg/dL (0.2-1.0); Total Protein 5.8 g/dL (6.4-8.2)
[2022-06-12 06:42] LABS: Urine Bacteria NONE SEEN /hpf (None Seen); Urine Blood Negative /uL (Negative); Urine Hyaline Cast FEW /lpf (0 - 2); Urine Mucus FEW (None Seen); Urine Specific Gravity 1.024 (1.001-1.035); Urine WBC 3 /hpf (0 - 3)
[2022-06-12 06:55] LABS: Alcohol, Urine < 3.0 mg/dL (0-10); Amphetamine Screen, Urine NEGATIVE (NEGATIVE); Barbiturate Scree,Urine NEGATIVE (NEGATIVE); Benzodiazephine Screen, Urine NEGATIVE (NEGATIVE); Cannabinoid Screen, Urine NEGATIVE (NEGATIVE); Cocaine Screen, Urine NEGATIVE (NEGATIVE); Opiate Scree,Urine POSITIVE (NEGATIVE); Phencyclidine Screen, Urine NEGATIVE (NEGATIVE)
[2022-06-12 08:30] VITALS: BP 125/85
[2022-06-12] MEDS ORDERED: amLODIPine BESYLATE 5 MG TAB PO SCH (10:00)
[2022-06-12] MEDS ORDERED: LOSARTAN POTASSIUM 50 MG TAB PO SCH (10:00)
[2022-06-12] MEDS: ATENOLOL 25 MG TAB PO SCH ×2 (10:00→22:00)
[2022-06-12] MEDS ORDERED: ENOXAPARIN SOD 40 MG/0.4 ML SYRINGE SC SCH (10:00)
[2022-06-12] MEDS: PANTOPRAZOLE 40 MG/10 ML VIAL INJ IV SCH (10:19)
[2022-06-12] MEDS: ASPirin-EC 81 mg tab PO SCH (10:24)
[2022-06-12] MEDS: FLUoxetine HCL 20 MG CAP PO SCH (10:25)
[2022-06-12] MEDS: RANOLAZINE ER 500 MG TAB PO SCH ×2 (10:26→22:18)
[2022-06-12] MEDS: ASCORBIC ACID 1,000 MG TAB PO SCH (10:27)
[2022-06-12] MEDS: HYDROcodone-ACET 5/325MG TAB PO PRN (10:33)
[2022-06-12] MEDS: SODIUM CHLORIDE 0.9% 1,000 ML IV SCH (11:00)
[2022-06-12] MEDS ORDERED: THIAMINE 100mg/ml INJ (200mg/2ml VIAL) IV ONE (11:00)
[2022-06-12] MEDS ORDERED: POTASSIUM CHL 20 Meq TABLET PO ONE (11:00)
[2022-06-12] MEDS ORDERED: TAMS0.4C36 PO (13:11)
[2022-06-12] MEDS ORDERED: ROSU40TA PO (13:11)
[2022-06-12] MEDS ORDERED: AMLO-496 PO (13:11)
[2022-06-12] MEDS ORDERED: RANO500T3 PO (13:14)
[2022-06-12] MEDS ORDERED: POTA-180 PO (13:16)
[2022-06-12] MEDS ORDERED: PANT40TA2 PO (13:16)
[2022-06-12] MEDS ORDERED: TRAZ50TA2 PO (13:16)
[2022-06-12 13:30] VITALS: BP 122/85
[2022-06-12 16:30] VITALS: BP 82/62
[2022-06-12 20:00] VITALS: BP 100/66
[2022-06-12 21:30] VITALS: BP 91/62
[2022-06-13] MEDS: ALBUTEROL SULF 2.5 MG/0.5ML(0.5%) NEB SOLN NEB SCH ×4 (00:08→18:04)
[2022-06-13] MEDS: IPRATROPIUM BROM 0.5 MG/2.5ML INH SOL NEB SCH ×4 (00:08→18:04)
[2022-06-13] MEDS: SODIUM CHLORIDE 0.9% 1,000 ML IV SCH ×2 (00:35→16:05)
[2022-06-13 05:00] VITALS: BP 114/78
[2022-06-13 06:20] LABS: Potassium 3.5 mmol/L (3.5-5.1)
[2022-06-13 06:28] LABS: Albumin 2.4 g/dL (3.4-5.0); BUN/Creatinine Ratio 21.3; Bilirubin, Total 0.6 mg/dL (0.2-1.0); Calcium 8.5 mg/dL (8.5-10.1); Magnesium 2.4 mg/dL (1.6-2.6); Total Protein 5.4 g/dL (6.4-8.2)
[2022-06-13 08:00] VITALS: BP 104/78
[2022-06-13] MEDS: ASPirin-EC 81 mg tab PO SCH (08:27)
[2022-06-13] MEDS: HYDROcodone-ACET 5/325MG TAB PO PRN ×2 (08:27→16:05)
[2022-06-13] MEDS: RANOLAZINE ER 500 MG TAB PO SCH ×2 (08:27→21:52)
[2022-06-13] MEDS: FLUoxetine HCL 20 MG CAP PO SCH (08:27)
[2022-06-13] MEDS: THIAMINE 100mg/ml INJ (200mg/2ml VIAL) IV SCH (08:28)
[2022-06-13] MEDS: PANTOPRAZOLE 40 MG/10 ML VIAL INJ IV SCH (08:34)
[2022-06-13] MEDS: ATENOLOL 25 MG TAB PO SCH (08:34)
[2022-06-13 09:00] VITALS: BP 109/64
[2022-06-13 13:00] VITALS: BP 104/78
[2022-06-13 16:30] VITALS: BP 102/74
[2022-06-13] MEDS: MORPHINE SULFATE INJ 2 MG/ml SYRG IV PRN (21:47)
[2022-06-13 22:00] VITALS: BP 124/87
[2022-06-13] MEDS ORDERED: ATORVASTATIN 20 MG TAB PO SCH (22:00)
[2022-06-14] MEDS: ALBUTEROL SULF 2.5 MG/0.5ML(0.5%) NEB SOLN NEB SCH ×3 (00:10→12:02)
[2022-06-14] MEDS: IPRATROPIUM BROM 0.5 MG/2.5ML INH SOL NEB SCH ×3 (00:10→12:02)
[2022-06-14] MEDS: SODIUM CHLORIDE 0.9% 1,000 ML IV SCH (03:17)
[2022-06-14 05:00] VITALS: BP 121/82
[2022-06-14 08:00] VITALS: BP 134/90
[2022-06-14] MEDS: FLUoxetine HCL 20 MG CAP PO SCH (08:49)
[2022-06-14] MEDS: RANOLAZINE ER 500 MG TAB PO SCH (08:49)
[2022-06-14] MEDS: THIAMINE 100mg/ml INJ (200mg/2ml VIAL) IV SCH (08:49)
[2022-06-14] MEDS: MORPHINE SULFATE INJ 2 MG/ml SYRG IV PRN ×2 (08:50→12:24)
[2022-06-14 09:00] VITALS: BP 134/90
[2022-06-14] MEDS ORDERED: AMLO-496 PO (11:20)
[2022-06-14] MEDS ORDERED: ALBUAER3 IN (11:20)
[2022-06-14] MEDS ORDERED: ROSU40TA PO (11:20)
[2022-06-14] MEDS ORDERED: FLUO20CA90 PO (11:20)
[2022-06-14] MEDS ORDERED: PANT40TA2 PO (11:20)
[2022-06-14] MEDS ORDERED: TAM04C PO (11:20)
[2022-06-14] MEDS ORDERED: RANO500T PO (11:20)
[2022-06-14] MEDS ORDERED: TRAZ50TA2 PO (11:20)
[2022-06-14 12:36] VITALS: BP 98/74
[2022-06-14 13:30] VITALS: BP 110/68
== END 2022-06-14 13:50 | disposition home or self-care (01) | DRG 282 ==
LOC: ER 14:46 → OVERFLOW 17:15 → EAST 21:35
PROVIDERS: ADMIT Nurse Practitioner Family; ATTEND Internal Medicine
DX: K85.20 Alcohol induced acute pancreatitis without necrosis or infection (principal); J96.10 Chronic respiratory failure, unspecified whether with hypoxia or hypercapnia; N17.9 Acute kidney failure, unspecified; J84.10 Pulmonary fibrosis, unspecified; K74.60 Unspecified cirrhosis of liver; E87.1 Hypo-osmolality and hyponatremia; J44.9 Chronic obstructive pulmonary disease, unspecified; F41.9 Anxiety disorder, unspecified; I10 Essential (primary) hypertension; E78.5 Hyperlipidemia, unspecified; B19.20 Unspecified viral hepatitis C without hepatic coma; Z20.822 Contact with and (suspected) exposure to COVID-19; F32.A Depression, unspecified; F10.10 Alcohol abuse, uncomplicated
CPT/HCPCS: 36415; 71045; 80053; 80307; 81001; 83690; 83735; 83880; 84484; 85025; 85610; 85652; 85730; 86141; 87426; 93005; 94640; 96361; 96374; C9113; G0378

== ENCOUNTER → 2022-08-13 | Outpatient (CLI) | payer MEDICAID ==
[~2022-08-13] VITALS: Ht 180.3 cm; Wt 63.5 kg
[~2022-08-13] MED LIST changes: +ADENOSINE 53 MG in GIVE UN-DILUTED 0 ML IV ONE; +ADENOSINE 90 MG/30 ML INJ IV ONE; -AMLO-489 PO; +AMLO-496 PO; -ASCO100076 PO; -ASPI-543 PO; -ATEN-60 PO; -FLU220IH IN; -FLUO1TAB14 PO; +FLUO20CA90 PO; -HYDR-4072 PO; -OMEP20TA PO; -ONDA-144 PO; +PANT40TA2 PO; -POM PO; +POTA-180 PO; +RANO500T PO; -RANO500T2 PO; +RANO500T3 PO; +ROSU40TA PO; -SENN8.6C PO; +TAM04C PO; +TAMS0.4C36 PO; +TRAZ50TA2 PO
== END | disposition home or self-care (01) ==
LOC: Rad HDHVI 08:03
PROVIDERS: ATTEND Internal Medicine
DX: I25.110 Atherosclerotic heart disease of native coronary artery with unstable angina pectoris (principal); I10 Essential (primary) hypertension; J44.9 Chronic obstructive pulmonary disease, unspecified; R06.02 Shortness of breath; Z79.899 Other long term (current) drug therapy
CPT/HCPCS: 78452; 93005; 96374; 96375; A9500; J0153

== ENCOUNTER 2023-04-29 15:22 | Inpatient (IN) | payer MEDICAID ==
[~2023-04-29] VITALS: Ht 180.3 cm; Wt 72.7 kg
[~2023-04-29 15:22] MED LIST changes: -ACLI1AER2 IN; +ACLI400A5 IN; -ADENOSINE 53 MG in GIVE UN-DILUTED 0 ML IV ONE; -ADENOSINE 90 MG/30 ML INJ IV ONE; -AMLO-496 PO; +AMLO1TAB23 PO; -LOSA-39 PO; +LOSA100T58 PO; -ROSU40TA PO; +ROSU40TA81 PO; -TAM04C PO; +TAMS-35 PO; +TRAZ-227 PO; -TRAZ50TA2 PO
[2023-04-29 16:43] LABS: Basophils # (auto) 0.1 10 ^3/uL (0-0.2); Eosinophils # (auto) 0 10 ^3/uL (0-0.8); Eosinophils % (auto) 0.1 % (0.0-7.0); Lymphocytes # (auto) 1.2 10 ^3/uL (0.4-5.4); Mean Corpuscular Hemoglobin 39.8 pg (28.0-32.0)
[2023-04-29 16:45] LABS: Basophils % (auto) 0.8 % (0.0-2.0); Hematocrit 29.7 % (41.0-53.0); Hemoglobin 10.2 g/dL (13.5-17.5); Lymphocytes % (auto) 11.9 % (10.0-50.0); Mean Corpuscular Hgb Conc. 34.3 g/dL (32.0-36.0); Monocytes # (auto) 0.7 10 ^3/uL (0-1.3); Monocytes % (auto) 7.5 % (0.0-12.0); Neutrophils # (auto) 7.8 10 ^3/uL (1.6-8.6); Neutrophils % (auto) 79.7 % (37.0-80.0); Red Blood Cells 2.56 10^6/uL (4.5-5.90); White Blood Cell 9.8 10^3/uL (4.4-10.8)
[2023-04-29 16:59] LABS: INR 1.16 (0.9-1.15); Partial Thromboplastin Time 28.4 SEC (24.5-34.5); Prothrombin Time 12.1 sec (9.3-11.8)
[2023-04-29 17:09] LABS: Alanine Aminotransferase 37 U/L (7-40); Albumin 3.2 g/dL (3.2-4.8); Alkaline Phosphatase 101 U/L (46-116); Anion Gap 15.4 (5-15); Aspartate Aminotransferase 94 U/L (13-40); BUN/Creatinine Ratio 17.9 (10.0-20.0); Bilirubin, Total 0.7 mg/dL (0.2-1.0); Blood Urea Nitrogen 10 mg/dL (9-23); Calcium 8.3 mg/dL (8.7-10.4); Carbon Dioxide 19.6 mmol/L (20-30); Chloride 102 mmol/L (98-107); Glucose 79 mg/dL (74-106); Potassium 3.5 mmol/L (3.5-5.1); Sodium 137 mmol/L (136-145); Total Protein 5.9 g/dL (5.7-8.2)
[2023-04-29 17:10] LABS: Hypochromia Slight; Macrocytosis Moderate; Platelet Estimate Adequate
[2023-04-29] MEDS ORDERED: SODIUM CHLORIDE 0.9% 1,000 ML IV ONE (19:00)
[2023-04-29] MEDS ORDERED: IOHEXOL 350 MG/ML 100ML IJ ONE (20:55)
[2023-04-29] MEDS ORDERED: NITROGLYCERIN 0.4 MG SL TAB SL PRN (22:30)
[2023-04-29] MEDS: SODIUM CHLORIDE 0.9% 1,000 ML IV SCH (22:30)
[2023-04-29] MEDS ORDERED: ACETAMINOPHEN 325 MG TAB PO PRN (22:30)
[2023-04-30] VITALS (7 sets, daily range): BP systolic 110; BP diastolic 87; PULSE 96–115; RESP 15–18; TEMP 99; O2SAT 93–98
[2023-04-30] MEDS ORDERED: HYDROcodone-ACET 5/325MG TAB PO PRN
[2023-04-30] MEDS: ONDANSETRON HCL 4 MG/2 ML VIAL IV PRN ×3 (03:00→14:51)
[2023-04-30] MEDS: MORPHINE SULFATE INJ 2 MG/ml SYRG IV PRN ×2 (03:00→14:52)
[2023-04-30 05:45] LABS: Basophils # (auto) 0 10 ^3/uL (0-0.2); Basophils % (auto) 0.4 % (0.0-2.0); Eosinophils # (auto) 0 10 ^3/uL (0-0.8); Hemoglobin 10.3 g/dL (13.5-17.5); Monocytes # (auto) 0.7 10 ^3/uL (0-1.3); Monocytes % (auto) 6.8 % (0.0-12.0); Neutrophils # (auto) 8.4 10 ^3/uL (1.6-8.6); Nucleated Red Blood Cells % 0.1 %; White Blood Cell 10.4 10^3/uL (4.4-10.8)
[2023-04-30 05:49] LABS: Hematocrit 29.8 % (41.0-53.0); Lymphocytes # (auto) 1.3 10 ^3/uL (0.4-5.4); Lymphocytes % (auto) 12.6 % (10.0-50.0); Mean Corpuscular Hemoglobin 40.3 pg (28.0-32.0); Mean Corpuscular Hgb Conc. 34.5 g/dL (32.0-36.0); Mean Corpuscular Volume 116.7 fL (80.0-100.0); Neutrophils % (auto) 80.2 % (37.0-80.0); Red Blood Cells 2.55 10^6/uL (4.5-5.90); Red Cell Distribution Width 13.9 % (11.8-14.3)
[2023-04-30] MEDS: cloNIDine HCL 0.1 MG TAB PO SCH ×4 (06:00→18:00)
[2023-04-30 06:22] LABS: Alanine Aminotransferase 28 U/L (7-40); Albumin 3.2 g/dL (3.2-4.8); Alkaline Phosphatase 93 U/L (46-116); Anion Gap 16.1 (5-15); Aspartate Aminotransferase 68 U/L (13-40); BUN/Creatinine Ratio 11.1 (10.0-20.0); Bilirubin, Total 0.9 mg/dL (0.2-1.0); Blood Urea Nitrogen 8 mg/dL (9-23); Calcium 8.4 mg/dL (8.5-10.1); Carbon Dioxide 20.9 mmol/L (20-30); Chloride 100 mmol/L (98-107); Cholesterol 125 mg/dL (< 200); Glucose 80 mg/dL (74-106); HDL Cholesterol 30 mg/dL (40-59); LDL Cholesterol 83 mg/dL (< 100); Potassium 3.3 mmol/L (3.5-5.1); Sodium 137 mmol/L (136-145); Total Protein 6.1 g/dL (5.7-8.2); Triglycerides 79 mg/dL (< 150)
[2023-04-30] MEDS: SODIUM CHLORIDE 0.9% 1,000 ML IV SCH (08:30)
[2023-04-30] MEDS ORDERED: POTASSIUM CHL 20 Meq TABLET PO SCH (09:00)
[2023-04-30] MEDS: RANOLAZINE ER 500 MG TAB PO SCH ×2 (10:23→22:00)
[2023-04-30] MEDS: amLODIPine BESYLATE 5 MG TAB PO SCH (10:23)
[2023-04-30] MEDS: TAMSULOSIN HYDROCHLORIDE 0.4 MG CAP PO SCH (10:24)
[2023-04-30] MEDS: LOSARTAN POTASSIUM 50 MG TAB PO SCH (10:24)
[2023-04-30] MEDS: ATORVASTATIN 20 MG TAB PO SCH (10:24)
[2023-04-30] MEDS ORDERED: PANTOPRAZOLE 40 MG/10 ML VIAL INJ IV ONE (11:00)
[2023-04-30] MEDS ORDERED: metroNIDAZOLE 500MG/100ML 100 ML IV ONE (14:30)
[2023-04-30] MEDS: D5W/SOD CHL 0.45% 1,000 ML IV SCH (14:52)
[2023-04-30 16:18] LABS: Folate (Folic Acid) 4.05 ng/mL (>5.38)
[2023-04-30 18:37] LABS: Urine Bacteria FEW /hpf (None Seen); Urine Blood Negative /uL (Negative); Urine Clarity Clear (Clear); Urine Color Yellow (Yellow); Urine Protein, UAD 1+ (Negative); Urine Specific Gravity 1.039 (1.001-1.035); Urine WBC 1 /hpf (0 - 3); Urine pH 6.5 (5.0-8.0)
[2023-04-30 18:49] LABS: COVID19 ANTIGEN SOFIA FIA NEGATIVE (NEGATIVE)
[2023-04-30 18:52] LABS: Amphetamine Screen, Urine Neg (NEGATIVE)
[2023-04-30 18:53] LABS: Barbiturate Scree,Urine Neg (NEGATIVE); Benzodiazephine Screen, Urine Neg (NEGATIVE); Cannabinoid Screen, Urine Neg (NEGATIVE); Cocaine Screen, Urine Neg (NEGATIVE); Opiate Scree,Urine Pos (NEGATIVE); Phencyclidine Screen, Urine Neg (NEGATIVE)
[2023-04-30] MEDS: IPRATROPIUM BROM 0.5 MG/2.5ML INH SOL NEB PRN (19:25)
[2023-04-30] MEDS: ALBUTEROL SULF 2.5 MG/0.5ML(0.5%) NEB SOLN NEB PRN (19:25)
[2023-04-30] MEDS: traZODone HCL 50 MG TAB PO SCH (22:00)
[2023-04-30] MEDS: CEFEPIME 1GM/ 50ML 50 ML IV SCH (22:00)
[2023-05-01] VITALS (11 sets, daily range): BP systolic 116–127; BP diastolic 82–89; PULSE 84–113; RESP 16–20; TEMP 97.8–98.6; O2SAT 92–100
[2023-05-01] MEDS: MORPHINE SULFATE INJ 2 MG/ml SYRG IV PRN ×3 (01:13→21:11)
[2023-05-01] MEDS: D5W/SOD CHL 0.45% 1,000 ML IV SCH ×2 (01:21→21:26)
[2023-05-01] MEDS: cloNIDine HCL 0.1 MG TAB PO SCH ×2 (05:44)
[2023-05-01] MEDS: metroNIDAZOLE 500MG/100ML 100 ML IV SCH ×3 (05:44→21:12)
[2023-05-01 06:29] LABS: Basophils # (auto) 0 10 ^3/uL (0-0.2); Basophils % (auto) 0.4 % (0.0-2.0); Eosinophils # (auto) 0 10 ^3/uL (0-0.8); Hemoglobin 9.7 g/dL (13.5-17.5); Lymphocytes # (auto) 1.3 10 ^3/uL (0.4-5.4); Mean Corpuscular Hemoglobin 40.3 pg (28.0-32.0); Mean Corpuscular Hgb Conc. 34.8 g/dL (32.0-36.0); Monocytes # (auto) 0.6 10 ^3/uL (0-1.3)
[2023-05-01 06:31] LABS: Eosinophils % (auto) 0.4 % (0.0-7.0); Hematocrit 27.9 % (41.0-53.0); Lymphocytes % (auto) 12.8 % (10.0-50.0); Mean Corpuscular Volume 115.9 fL (80.0-100.0); Monocytes % (auto) 6.1 % (0.0-12.0); Neutrophils # (auto) 7.9 10 ^3/uL (1.6-8.6); Neutrophils % (auto) 80.3 % (37.0-80.0); Nucleated Red Blood Cells % 0.1 %; Red Blood Cells 2.41 10^6/uL (4.5-5.90); Red Cell Distribution Width 13.7 % (11.8-14.3); White Blood Cell 9.8 10^3/uL (4.4-10.8)
[2023-05-01 06:45] LABS: Alanine Aminotransferase 23 U/L (7-40); Anion Gap 6.5 (5-15); BUN/Creatinine Ratio 10.1 (10.0-20.0); Blood Urea Nitrogen 7 mg/dL (9-23); Calcium 8.3 mg/dL (8.7-10.4); Carbon Dioxide 27.5 mmol/L (20-30); Chloride 100 mmol/L (98-107); Glucose 131 mg/dL (74-106); Sodium 134 mmol/L (136-145)
[2023-05-01 06:46] LABS: Albumin 2.9 g/dL (3.2-4.8)
[2023-05-01 06:47] LABS: Aspartate Aminotransferase 38 U/L (13-40); Total Protein 5.6 g/dL (5.7-8.2)
[2023-05-01 06:56] LABS: Potassium 2.9 mmol/L (3.5-5.1)
[2023-05-01 06:58] LABS: Alkaline Phosphatase 81 U/L (46-116)
[2023-05-01] MEDS ORDERED: POTASSIUM CHL 20MEQ/100ML 100 ML IV ONE (07:45)
[2023-05-01] MEDS: ONDANSETRON HCL 4 MG/2 ML VIAL IV PRN ×2 (08:22→21:19)
[2023-05-01] MEDS ORDERED: PANTOPRAZOLE 40 MG/10 ML VIAL INJ IV ONE (08:45)
[2023-05-01] MEDS: RANOLAZINE ER 500 MG TAB PO SCH ×2 (10:24→21:23)
[2023-05-01] MEDS: CEFEPIME 1GM/ 50ML 50 ML IV SCH ×2 (10:24→22:24)
[2023-05-01] MEDS: amLODIPine BESYLATE 5 MG TAB PO SCH (10:29)
[2023-05-01] MEDS: LOSARTAN POTASSIUM 50 MG TAB PO SCH (10:30)
[2023-05-01] MEDS: ATORVASTATIN 20 MG TAB PO SCH (10:30)
[2023-05-01] MEDS: TAMSULOSIN HYDROCHLORIDE 0.4 MG CAP PO SCH (10:31)
[2023-05-01] MEDS ORDERED: FOLIC ACID 1 MG, MULTIPLE VITAMIN 10 ML, MAGNESIUM SULF SDV 50% 8 MEQ, THIAMINE INJ 100... INJ ONE ×5 (12:00)
[2023-05-01 12:04] LABS: Hepatitis B Surface Antigen Negative (Negative)
[2023-05-01 12:25] LABS: Hepatitis A Ab IgM Negative; Hepatitis B Core IgM Negative
[2023-05-01] MEDS: POTASSIUM CHL 20MEQ/100ML 100 ML IV SCH ×2 (12:53→15:42)
[2023-05-01] MEDS: IPRATROPIUM BROM 0.5 MG/2.5ML INH SOL NEB PRN (13:41)
[2023-05-01] MEDS: ALBUTEROL SULF 2.5 MG/0.5ML(0.5%) NEB SOLN NEB PRN (13:41)
[2023-05-01] MEDS: MAGNESIUM SULFATE 1GM/100ML 100 ML IV SCH ×2 (15:42→16:47)
[2023-05-01 15:48] LABS: Hepatitis C Antibody Positive (Negative)
[2023-05-01] MEDS: traZODone HCL 50 MG TAB PO SCH (21:23)
[2023-05-02] VITALS (10 sets, daily range): BP systolic 105–129; BP diastolic 77–93; PULSE 85–97; RESP 14–23; TEMP 97.3–98.8; O2SAT 94–97
[2023-05-02] MEDS: metroNIDAZOLE 500MG/100ML 100 ML IV SCH ×3 (05:19→22:00)
[2023-05-02] MEDS: ONDANSETRON HCL 4 MG/2 ML VIAL IV PRN ×2 (05:30→14:45)
[2023-05-02] MEDS: MORPHINE SULFATE INJ 2 MG/ml SYRG IV PRN ×3 (05:31→21:29)
[2023-05-02] MEDS: D5W/SOD CHL 0.45% 1,000 ML IV SCH (05:40)
[2023-05-02] MEDS: CEFEPIME 1GM/ 50ML 50 ML IV SCH ×3 (06:48→21:16)
[2023-05-02 08:01] LABS: Eosinophils # (auto) 0.1 10 ^3/uL (0-0.8); Eosinophils % (auto) 0.6 % (0.0-7.0); Hemoglobin 10.7 g/dL (13.5-17.5); Lymphocytes # (auto) 1.3 10 ^3/uL (0.4-5.4)
[2023-05-02 08:03] LABS: Basophils # (auto) 0 10 ^3/uL (0-0.2); Basophils % (auto) 0.5 % (0.0-2.0); Hematocrit 30.4 % (41.0-53.0); Lymphocytes % (auto) 12.8 % (10.0-50.0); Mean Corpuscular Hemoglobin 40.7 pg (28.0-32.0); Mean Corpuscular Hgb Conc. 35.3 g/dL (32.0-36.0); Mean Corpuscular Volume 115.3 fL (80.0-100.0); Monocytes # (auto) 0.5 10 ^3/uL (0-1.3); Monocytes % (auto) 4.8 % (0.0-12.0); Neutrophils # (auto) 8.1 10 ^3/uL (1.6-8.6); Neutrophils % (auto) 81.3 % (37.0-80.0); Red Blood Cells 2.64 10^6/uL (4.5-5.90); Red Cell Distribution Width 13.6 % (11.8-14.3)
[2023-05-02 08:18] LABS: Alanine Aminotransferase 24 U/L (7-40); Alkaline Phosphatase 83 U/L (46-116); Anion Gap 7.5 (5-15); Aspartate Aminotransferase 38 U/L (13-40); Bilirubin, Total 0.8 mg/dL (0.2-1.0); Calcium 8.1 mg/dL (8.5-10.1); Carbon Dioxide 24.5 mmol/L (20-30); Chloride 102 mmol/L (98-107); Glucose 131 mg/dL (74-106); Magnesium 1.5 mg/dL (1.6-2.6); Potassium 3.2 mmol/L (3.5-5.1); Sodium 134 mmol/L (136-145)
[2023-05-02 08:24] LABS: BUN/Creatinine Ratio 8.3 (10.0-20.0); Blood Urea Nitrogen < 5 mg/dL (9-23)
[2023-05-02] MEDS ORDERED: CYANOCOBALAMIN (B-12) 1000 MCG/1 ML VIAL IM ONE (09:15)
[2023-05-02] MEDS ORDERED: POTASSIUM CHL 20MEQ/100ML 100 ML IV ONE (09:15)
[2023-05-02] MEDS: MAGNESIUM SULFATE 1GM/100ML 100 ML IV SCH ×4 (09:50→15:17)
[2023-05-02] MEDS: PANTOPRAZOLE 40 MG/10 ML VIAL INJ IV SCH (09:59)
[2023-05-02] MEDS: RANOLAZINE ER 500 MG TAB PO SCH ×2 (10:02→23:47)
[2023-05-02] MEDS: ATORVASTATIN 20 MG TAB PO SCH (10:02)
[2023-05-02] MEDS: TAMSULOSIN HYDROCHLORIDE 0.4 MG CAP PO SCH (10:03)
[2023-05-02] MEDS: LOSARTAN POTASSIUM 50 MG TAB PO SCH (10:03)
[2023-05-02] MEDS: amLODIPine BESYLATE 5 MG TAB PO SCH (10:03)
[2023-05-02] MEDS: traZODone HCL 50 MG TAB PO SCH (23:47)
[2023-05-03] MEDS: CEFEPIME 1GM/ 50ML 50 ML IV SCH ×2 (04:31→14:32)
[2023-05-03 05:00] VITALS: BP 99/73; PULSE 91; RESP 16; TEMP 97.5; O2SAT 96
[2023-05-03] MEDS: metroNIDAZOLE 500MG/100ML 100 ML IV SCH ×2 (05:33→14:26)
[2023-05-03 06:20] LABS: Basophils # (auto) 0 10 ^3/uL (0-0.2); Eosinophils # (auto) 0.1 10 ^3/uL (0-0.8); Hemoglobin 9.5 g/dL (13.5-17.5); Monocytes # (auto) 0.5 10 ^3/uL (0-1.3); Neutrophils # (auto) 6.8 10 ^3/uL (1.6-8.6); White Blood Cell 8.4 10^3/uL (4.4-10.8)
[2023-05-03 06:22] LABS: Basophils % (auto) 0.3 % (0.0-2.0); Hematocrit 27.1 % (41.0-53.0); Lymphocytes % (auto) 12.1 % (10.0-50.0); Mean Corpuscular Hemoglobin 40.3 pg (28.0-32.0); Mean Corpuscular Hgb Conc. 35.1 g/dL (32.0-36.0); Mean Corpuscular Volume 114.8 fL (80.0-100.0); Monocytes % (auto) 5.8 % (0.0-12.0); Neutrophils % (auto) 80.8 % (37.0-80.0); Nucleated Red Blood Cells % 0.1 %; Red Blood Cells 2.36 10^6/uL (4.5-5.90); Red Cell Distribution Width 13.8 % (11.8-14.3)
[2023-05-03 07:47] LABS: Anion Gap 6.2 (5-15); Carbon Dioxide 24.8 mmol/L (20-30); Chloride 103 mmol/L (98-107); Potassium 3.1 mmol/L (3.5-5.1); Sodium 134 mmol/L (136-145)
[2023-05-03 07:48] LABS: Calcium 7.8 mg/dL (8.5-10.1)
[2023-05-03 07:53] LABS: Glucose 98 mg/dL (74-106)
[2023-05-03 08:00] VITALS: PULSE 99
[2023-05-03 08:00] LABS: BUN/Creatinine Ratio 8.8 (10.0-20.0); Blood Urea Nitrogen < 5 mg/dL (9-23)
[2023-05-03] MEDS ORDERED: POTASSIUM CHL 20 Meq TABLET PO ONE (08:45)
[2023-05-03 09:18] VITALS: BP 108/72; PULSE 82; RESP 18; TEMP 97.8; O2SAT 95
[2023-05-03] MEDS: ATORVASTATIN 20 MG TAB PO SCH (09:43)
[2023-05-03] MEDS: RANOLAZINE ER 500 MG TAB PO SCH (09:43)
[2023-05-03] MEDS: LOSARTAN POTASSIUM 50 MG TAB PO SCH (09:44)
[2023-05-03] MEDS: PANTOPRAZOLE 40 MG/10 ML VIAL INJ IV SCH (09:45)
[2023-05-03] MEDS: TAMSULOSIN HYDROCHLORIDE 0.4 MG CAP PO SCH (09:45)
[2023-05-03] MEDS: amLODIPine BESYLATE 5 MG TAB PO SCH (09:45)
[2023-05-03 10:20] VITALS: O2SAT 95
[2023-05-03] MEDS: MORPHINE SULFATE INJ 2 MG/ml SYRG IV PRN (12:13)
[2023-05-03 13:00] VITALS: BP 112/74; PULSE 84; RESP 20; TEMP 98; O2SAT 96
[2023-05-03] MEDS ORDERED: CIPR500T4 PO (15:54)
[2023-05-03] MEDS ORDERED: METR-344 PO (15:55)
[2023-05-03 16:40] VITALS: BP 120/88; PULSE 94; RESP 20; TEMP 98.1; O2SAT 93
== END 2023-05-03 17:39 | disposition home health service (06) ==
LOC: EDBD 15:22 → ER 15:22 → EDUNIT# 15:22 → TELE 22:21 → TELE-WESTW 04-30 23:07
PROVIDERS: ADMIT Internal Medicine Pulmonary Disease; ATTEND Internal Medicine Pulmonary Disease
DX: K80.20 Calculus of gallbladder without cholecystitis without obstruction (principal); D53.1 Other megaloblastic anemias, not elsewhere classified; I50.32 Chronic diastolic (congestive) heart failure; K70.9 Alcoholic liver disease, unspecified; I11.0 Hypertensive heart disease with heart failure; K76.0 Fatty (change of) liver, not elsewhere classified; K52.9 Noninfective gastroenteritis and colitis, unspecified; Z51.5 Encounter for palliative care; E86.0 Dehydration; J44.9 Chronic obstructive pulmonary disease, unspecified; S51.011A Laceration without foreign body of right elbow, initial encounter; Z20.822 Contact with and (suspected) exposure to COVID-19; E78.5 Hyperlipidemia, unspecified; B19.20 Unspecified viral hepatitis C without hepatic coma; K21.9 Gastro-esophageal reflux disease without esophagitis; W01.0XXA Fall on same level from slipping, tripping and stumbling without subsequent striking against object, initial encounter; R74.01 Elevation of levels of liver transaminase levels; S00.83XA Contusion of other part of head, initial encounter; E87.6 Hypokalemia; F41.9 Anxiety disorder, unspecified; Z87.891 Personal history of nicotine dependence; Z91.81 History of falling; Z82.3 Family history of stroke; Z80.8 Family history of malignant neoplasm of other organs or systems; Z82.49 Family history of ischemic heart disease and other diseases of the circulatory system; Y93.89 Activity, other specified; Y92.89 Other specified places as the place of occurrence of the external cause; Y99.8 Other external cause status; K63.5 Polyp of colon
CPT/HCPCS: 36415; 70450; 71045; 72125; 74018; 74177; 76705; 78226; 80048; 80053; 80061; 80074; 80307; 80320; 81001; 82607; 82746; 83735; 84443; 84484; 85025; 85610; 85730; 86850; 86900; 86901; 87426; 93005; 93306; 93886; 94640; 97110; 97116; 97163; 97530; C9113; G0378; J2405; J3480; J3490

== ENCOUNTER 2024-01-02 09:36 | Emergency (ER) | payer MEDICARE, OTHER ==
[~2024-01-02] VITALS: Ht 177.8 cm; Wt 70.0 kg
[~2024-01-02 09:36] MED LIST changes: +CIPR500T4 PO; -CLON0.1T PO; +LOSA-535 PO; -LOSA100T58 PO; +METR-344 PO
[2024-01-02 10:38] LABS: Urine Bacteria None Seen /hpf (None Seen)
[2024-01-02 10:41] LABS: Basophils # (auto) 0.1 10 ^3/uL (0-0.2); Eosinophils # (auto) 0 10 ^3/uL (0-0.8); Eosinophils % (auto) 0.3 % (0.0-7.0); Hematocrit 34.9 % (41.0-53.0); Hemoglobin 11.4 g/dL (13.5-17.5); Lymphocytes # (auto) 2.5 10 ^3/uL (0.4-5.4); Lymphocytes % (auto) 45.2 % (10.0-50.0); Mean Corpuscular Hemoglobin 32.4 pg (28.0-32.0); Mean Corpuscular Hgb Conc. 32.6 g/dL (32.0-36.0); Mean Corpuscular Volume 99.4 fL (80.0-100.0); Monocytes # (auto) 0.3 10 ^3/uL (0-1.3); Monocytes % (auto) 5.5 % (0.0-12.0); Neutrophils # (auto) 2.7 10 ^3/uL (1.6-8.6); Nucleated Red Blood Cells % 0.2 %; Red Blood Cells 3.51 10^6/uL (4.5-5.90); Red Cell Distribution Width 15.9 % (11.8-14.3); White Blood Cell 5.6 10^3/uL (4.4-10.8)
[2024-01-02 10:49] LABS: Alanine Aminotransferase 16 U/L (7-40); Albumin 3.7 g/dL (3.2-4.8); Alkaline Phosphatase 89 U/L (46-116); Anion Gap 11 (5-15); Aspartate Aminotransferase 42 U/L (13-40); BUN/Creatinine Ratio 11.8 (10.0-20.0); Bilirubin, Total 0.3 mg/dL (0.2-1.0); Blood Urea Nitrogen 8 mg/dL (9-23); Calcium 9.4 mg/dL (8.5-10.1); Carbon Dioxide 25 mmol/L (20-30); Chloride 105 mmol/L (98-107); Glucose 94 mg/dL (74-106); Potassium 3.8 mmol/L (3.5-5.1); Sodium 141 mmol/L (136-145); Total Protein 7.7 g/dL (5.7-8.2)
[2024-01-02 11:01] LABS: Urine Blood TRACE /uL (Negative); Urine Clarity Clear (Clear); Urine Color Light-Yellow (Yellow); Urine Protein, UAD TRACE (Negative); Urine Specific Gravity 1.013 (1.001-1.035); Urine Urobilinogen Normal (Negative); Urine WBC 1 /hpf (0 - 3)
[2024-01-02 11:02] LABS: Amphetamine Screen, Urine Neg (NEGATIVE); Barbiturate Scree,Urine Neg (NEGATIVE); Benzodiazephine Screen, Urine Neg (NEGATIVE); Cannabinoid Screen, Urine Neg (NEGATIVE); Cocaine Screen, Urine Neg (NEGATIVE); Opiate Scree,Urine Neg (NEGATIVE); Phencyclidine Screen, Urine Neg (NEGATIVE)
[2024-01-02 11:08] LABS: Blood Alcohol 474.9 mg/dL (<10)
[2024-01-02 13:09] VITALS: PULSE 82; RESP 18; O2SAT 100
[2024-01-02] MEDS: LORazepam 2MG/ML-1ML VIAL IV ONE (17:15)
[2024-01-02 19:10] VITALS: PULSE 115; RESP 14; O2SAT 95
[2024-01-02] MEDS ORDERED: AUG875T PO (19:32)
[2024-01-02] MEDS: cefTRIAXone SOD 1,000 MG VL ONE (19:49)
[2024-01-02] MEDS: cefTRIAXone W LIDOCAINE 1 GM IM IM ONE (19:49)
[2024-01-03] MEDS: LORazepam 2MG/ML-1ML VIAL IM ONE (02:02)
[2024-01-03 03:39] VITALS: PULSE 110; RESP 18; O2SAT 95
[2024-01-03 07:30] VITALS: PULSE 107; RESP 15; TEMP 98.3; O2SAT 95
[2024-01-03 08:21] LABS: Basophils # (auto) 0 10 ^3/uL (0-0.2); Basophils % (auto) 0.6 % (0.0-2.0); Eosinophils # (auto) 0 10 ^3/uL (0-0.8); Hematocrit 29.1 % (41.0-53.0); Hemoglobin 9.7 g/dL (13.5-17.5); Lymphocytes # (auto) 1.7 10 ^3/uL (0.4-5.4); Lymphocytes % (auto) 23.6 % (10.0-50.0); Mean Corpuscular Hemoglobin 32.6 pg (28.0-32.0); Mean Corpuscular Hgb Conc. 33.4 g/dL (32.0-36.0); Mean Corpuscular Volume 97.5 fL (80.0-100.0); Monocytes # (auto) 0.6 10 ^3/uL (0-1.3); Monocytes % (auto) 8.8 % (0.0-12.0); Nucleated Red Blood Cells % 0.1 %; Red Blood Cells 2.99 10^6/uL (4.5-5.90); Red Cell Distribution Width 15.4 % (11.8-14.3); White Blood Cell 7.4 10^3/uL (4.4-10.8)
[2024-01-03 08:41] LABS: Alanine Aminotransferase 14 U/L (7-40); Albumin 3.7 g/dL (3.2-4.8); Alkaline Phosphatase 85 U/L (46-116); Anion Gap 8 (5-15); Aspartate Aminotransferase 39 U/L (13-40); BUN/Creatinine Ratio 19.4 (10.0-20.0); Blood Alcohol < 3.0 mg/dL (<10); Blood Urea Nitrogen 14 mg/dL (9-23); Calcium 9.7 mg/dL (8.5-10.1); Carbon Dioxide 28 mmol/L (20-30); Chloride 97 mmol/L (98-107); Glucose 134 mg/dL (74-106); Sodium 133 mmol/L (136-145)
[2024-01-03 08:42] LABS: Total Protein 7.4 g/dL (5.7-8.2)
[2024-01-03] MEDS: THIAMINE 100mg/ml INJ (200mg/2ml VIAL) IV ONE (08:56)
[2024-01-03 09:01] LABS: INR 1.09 (0.9-1.15); Partial Thromboplastin Time 26.9 SEC (24.5-34.5); Prothrombin Time 11.5 sec (9.3-11.8)
[2024-01-03 14:00] VITALS: BP 136/97; PULSE 102; RESP 18; O2SAT 96
[2024-01-05 13:27] LABS: Magnesium 1.5 mg/dL (1.6-2.6)
== END 2024-01-03 14:11 | disposition home or self-care (01) ==
LOC: EEVIPCON 09:36 → EDBD 09:36 → ER 09:36
DX: S09.8XXA Other specified injuries of head, initial encounter (principal); J18.9 Pneumonia, unspecified organism; F10.129 Alcohol abuse with intoxication, unspecified; Z79.899 Other long term (current) drug therapy; Z79.01 Long term (current) use of anticoagulants; Y90.8 Blood alcohol level of 240 mg/100 ml or more
CPT/HCPCS: 36415; 70450; 70486; 71046; 71250; 72125; 72131; 74176; 80053; 80307; 80320; 81001; 82140; 83735; 85025; 85610; 85730; 86850; 86900; 86901; 96372; 96374; 96375; 99285; J0696; J2060; J3411

== ENCOUNTER 2024-02-16 15:16 | Inpatient (IN) | payer MEDICARE, OTHER ==
[~2024-02-16] VITALS: Ht 180.3 cm; Wt 60.0 kg
[~2024-02-16 15:16] MED LIST changes: +AUG875T PO
[2024-02-16 18:34] LABS: Basophils # (auto) 0.1 10 ^3/uL (0-0.2); Basophils % (auto) 0.8 % (0.0-2.0); Eosinophils # (auto) 0 10 ^3/uL (0-0.8); Hematocrit 38.5 % (41.0-53.0); Hemoglobin 12.8 g/dL (13.5-17.5); Lymphocytes # (auto) 1.1 10 ^3/uL (0.4-5.4); Mean Corpuscular Hemoglobin 34.9 pg (28.0-32.0); Mean Corpuscular Hgb Conc. 33.2 g/dL (32.0-36.0); Monocytes # (auto) 0.4 10 ^3/uL (0-1.3); Monocytes % (auto) 5.6 % (0.0-12.0); Neutrophils % (auto) 76.6 % (37.0-80.0); Nucleated Red Blood Cells % 0.2 %; Red Blood Cells 3.67 10^6/uL (4.5-5.90); Red Cell Distribution Width 18.8 % (11.8-14.3); White Blood Cell 6.5 10^3/uL (4.4-10.8)
[2024-02-16] MEDS: ONDANSETRON HCL 4 MG/2 ML VIAL IV ONE (18:45)
[2024-02-16] MEDS: MORPHINE SULFATE 4 MG/ML SYR/VIAL IV ONE (18:45)
[2024-02-16 18:57] LABS: Alanine Aminotransferase 20 U/L (7-40); Albumin 3.9 g/dL (3.2-4.8); Alkaline Phosphatase 131 U/L (46-116); Anion Gap 11 (5-15); Aspartate Aminotransferase 43 U/L (13-40); BUN/Creatinine Ratio 17.4 (10.0-20.0); Bilirubin, Total 0.5 mg/dL (0.2-1.0); Blood Urea Nitrogen 12 mg/dL (9-23); Calcium 8.9 mg/dL (8.5-10.1); Carbon Dioxide 24 mmol/L (20-30); Chloride 106 mmol/L (98-107); Glucose 72 mg/dL (74-106); Potassium 4.2 mmol/L (3.5-5.1); Sodium 141 mmol/L (136-145); Total Protein 7.7 g/dL (5.7-8.2)
[2024-02-16 19:03] LABS: Lactic Acid w/Reflex 3.8 mmol/L (0.4-2.0)
[2024-02-16] MEDS: PIPERACILLIN-TAZOB 3.375GM 100 ML IV ONE (19:15)
[2024-02-16] MEDS: SODIUM CHLORIDE 0.9% 1,000 ML IV ONE (19:15)
[2024-02-16 20:10] VITALS: PULSE 96; RESP 20; O2SAT 96
[2024-02-16] MEDS: MORPHINE SULFATE INJ 2 MG/ml SYRG IV ONE (21:15)
[2024-02-16] MEDS: SODIUM CHLORIDE 0.9% 1,000 ML IV SCH (22:30)
[2024-02-16] MEDS: MORPHINE SULFATE INJ 2 MG/ml SYRG IV PRN (22:57)
[2024-02-17] MEDS: LORazepam 2MG/ML-1ML VIAL IV ONE (00:53)
[2024-02-17] MEDS: IOHEXOL 350 MG/ML 100ML IJ ONE (03:08)
[2024-02-17] MEDS: ONDANSETRON HCL 4 MG/2 ML VIAL IV PRN (04:53)
[2024-02-17 05:55] LABS: Urine Amorphous Crystal FEW /hpf (None Seen); Urine Bacteria FEW /hpf (None Seen); Urine Blood 1+ /uL (Negative); Urine Clarity Clear (Clear); Urine Color Light-Yellow (Yellow); Urine Mucus FEW (None Seen); Urine Protein, UAD 1+ (Negative); Urine Specific Gravity 1.037 (1.001-1.035); Urine Urobilinogen Normal (Negative); Urine WBC 4 /hpf (0 - 3); Urine pH 5.5 (5.0-9.0)
[2024-02-17 06:03] LABS: Amphetamine Screen, Urine Neg (NEGATIVE); Barbiturate Scree,Urine Neg (NEGATIVE); Benzodiazephine Screen, Urine Neg (NEGATIVE)
[2024-02-17 06:04] LABS: Cannabinoid Screen, Urine Neg (NEGATIVE); Cocaine Screen, Urine Neg (NEGATIVE); Opiate Scree,Urine Pos (NEGATIVE); Phencyclidine Screen, Urine Neg (NEGATIVE)
[2024-02-17 06:33] LABS: Alanine Aminotransferase 17 U/L (7-40); Albumin 3.4 g/dL (3.2-4.8); Alkaline Phosphatase 103 U/L (46-116); Anion Gap 13 (5-15); Aspartate Aminotransferase 44 U/L (13-40); BUN/Creatinine Ratio 15.4 (10.0-20.0); Blood Urea Nitrogen 10 mg/dL (9-23); Calcium 8.5 mg/dL (8.7-10.4); Carbon Dioxide 22 mmol/L (20-30); Chloride 103 mmol/L (98-107); Glucose 68 mg/dL (74-106); Potassium 4.1 mmol/L (3.5-5.1); Sodium 138 mmol/L (136-145); Total Protein 6.9 g/dL (5.7-8.2)
[2024-02-17 06:46] LABS: Basophils # (auto) 0.1 10 ^3/uL (0-0.2); Eosinophils # (auto) 0 10 ^3/uL (0-0.8); Eosinophils % (auto) 0.1 % (0.0-7.0); Hemoglobin 11.4 g/dL (13.5-17.5); Lymphocytes # (auto) 1.3 10 ^3/uL (0.4-5.4); Monocytes # (auto) 0.8 10 ^3/uL (0-1.3); Nucleated Red Blood Cells % 0.1 %
[2024-02-17 06:47] LABS: Basophils % (auto) 0.8 % (0.0-2.0); Hematocrit 33.2 % (41.0-53.0); Lymphocytes % (auto) 15.5 % (10.0-50.0); Mean Corpuscular Hemoglobin 36.1 pg (28.0-32.0); Mean Corpuscular Hgb Conc. 34.3 g/dL (32.0-36.0); Mean Corpuscular Volume 105.3 fL (80.0-100.0); Monocytes % (auto) 9.2 % (0.0-12.0); Neutrophils # (auto) 6.3 10 ^3/uL (1.6-8.6); Neutrophils % (auto) 74.4 % (37.0-80.0); Red Blood Cells 3.15 10^6/uL (4.5-5.90); Red Cell Distribution Width 18.6 % (11.8-14.3); White Blood Cell 8.4 10^3/uL (4.4-10.8)
[2024-02-17 08:05] VITALS: PULSE 109; RESP 20; O2SAT 98
[2024-02-17] MEDS: levoFLOXacin 500MG 100 ML IV SCH (10:11)
[2024-02-17 13:39] VITALS: BP 142/92; PULSE 99; RESP 20; TEMP 98.1; O2SAT 98
[2024-02-17 16:08] LABS: INR 1.04 (0.9-1.15); Partial Thromboplastin Time 29.9 SEC (24.5-34.5)
[2024-02-17 17:41] VITALS: BP 142/96; PULSE 103; RESP 21; TEMP 98.2; O2SAT 100
[2024-02-17] MEDS: FLUoxetine HCL 20 MG CAP PO SCH ×2 (18:23→20:17)
[2024-02-17 18:25] LABS: Amphetamine Screen, Urine Neg (NEGATIVE); Barbiturate Scree,Urine Neg (NEGATIVE); Benzodiazephine Screen, Urine Neg (NEGATIVE); Cocaine Screen, Urine Neg (NEGATIVE); Opiate Scree,Urine Pos (NEGATIVE)
[2024-02-17 18:26] LABS: Cannabinoid Screen, Urine Neg (NEGATIVE); Phencyclidine Screen, Urine Neg (NEGATIVE)
[2024-02-17] MEDS: HYDROcodone-ACET 5/325MG TAB PO PRN (18:42)
[2024-02-17] MEDS ORDERED: HYDROcodone-ACET 10/325MG TAB PO PRN (19:00)
[2024-02-17 20:00] VITALS: PULSE 91; PULSE 98; RESP 16; O2SAT 98
[2024-02-17] MEDS: TAMSULOSIN HYDROCHLORIDE 0.4 MG CAP PO SCH (20:16)
[2024-02-17] MEDS: PANTOPRAZOLE 40 MG TAB PO SCH (20:17)
[2024-02-17] MEDS: PIPERACILLIN-TAZOB 3.375GM 100 ML IV SCH (21:18)
[2024-02-17] MEDS: RANOLAZINE ER 500 MG TAB PO SCH (21:19)
[2024-02-17 22:00] VITALS: BP 158/107; PULSE 102; RESP 16; TEMP 98.5; O2SAT 98
[2024-02-17] MEDS: traZODone HCL 50 MG TAB PO SCH (22:40)
[2024-02-18] VITALS (7 sets, daily range): BP systolic 134–152; BP diastolic 89–104; PULSE 89–114; RESP 16–19; TEMP 97.7–99; O2SAT 93–98
[2024-02-18] MEDS: HYDROcodone-ACET 10/325MG TAB PO PRN (00:49)
[2024-02-19] VITALS (11 sets, daily range): BP systolic 105–153; BP diastolic 56–96; PULSE 70–107; RESP 16–20; TEMP 97.9–98.4; O2SAT 93–100
[2024-02-19] MEDS: LORazepam 2MG/ML-1ML VIAL IM ONE (09:06)
[2024-02-19 10:44] LABS: Alanine Aminotransferase 14 U/L (7-40); Alkaline Phosphatase 78 U/L (46-116); Anion Gap 9 (5-15); Aspartate Aminotransferase 31 U/L (13-40); BUN/Creatinine Ratio 14.1 (10.0-20.0); Blood Urea Nitrogen 9 mg/dL (9-23); Calcium 8.6 mg/dL (8.5-10.1); Carbon Dioxide 23 mmol/L (20-30); Chloride 101 mmol/L (98-107); Glucose 102 mg/dL (74-106); Potassium 3.2 mmol/L (3.5-5.1); Total Protein 5.9 g/dL (5.7-8.2)
[2024-02-19 10:58] LABS: Sodium 133 mmol/L (136-145)
[2024-02-19 11:06] LABS: Basophils # (auto) 0 10 ^3/uL (0-0.2); Eosinophils # (auto) 0 10 ^3/uL (0-0.8); Monocytes # (auto) 0.4 10 ^3/uL (0-1.3); Monocytes % (auto) 5.6 % (0.0-12.0); Nucleated Red Blood Cells % 0.1 %; Red Cell Distribution Width 17.4 % (11.8-14.3)
[2024-02-19 11:08] LABS: Basophils % (auto) 0.3 % (0.0-2.0); Eosinophils % (auto) 0.3 % (0.0-7.0); Hemoglobin 9.3 g/dL (13.5-17.5); Lymphocytes # (auto) 0.7 10 ^3/uL (0.4-5.4); Lymphocytes % (auto) 10.4 % (10.0-50.0); Mean Corpuscular Hemoglobin 36.4 pg (28.0-32.0); Mean Corpuscular Hgb Conc. 34.6 g/dL (32.0-36.0); Mean Corpuscular Volume 105.3 fL (80.0-100.0); Neutrophils % (auto) 83.4 % (37.0-80.0); Red Blood Cells 2.56 10^6/uL (4.5-5.90); White Blood Cell 7.2 10^3/uL (4.4-10.8)
[2024-02-19] MEDS: ceFAZolin 2 GM/D5W50ml 50 ML IV ONE (13:58)
[2024-02-19] MEDS: BUPIVACAINE 0.5% P/F INJ 10 ML VIAL ONE (16:18)
[2024-02-19] MEDS ORDERED: MIDAZOLAM HCL 2MG/2ML 2ml VIAL (1mg/ml) ONE (16:19)
[2024-02-19] MEDS ORDERED: fentaNYL CITRATE 100 MCG/2 ML VL ONE (16:19)
[2024-02-19] MEDS ORDERED: KETAMINE 50mg/ML 1ml syringe ONE (16:19)
[2024-02-19] MEDS ORDERED: MORPHINE SULF PF 5 MG/10 ML VIAL ONE (16:19)
[2024-02-19] MEDS ORDERED: ONDANSETRON HCL 4 MG/2 ML VIAL ONE (16:20)
[2024-02-19] MEDS ORDERED: ePHEDrine SULFATE 50 MG/ML AMP ONE (16:20)
[2024-02-19] MEDS ORDERED: DexAMETHasone SOD PHOS 10MG/1ML VIAL INJ ONE (16:20)
[2024-02-19] MEDS ORDERED: GLYCOPYRROLATE 0.2 MG/ML 1ML VIAL ONE (16:20)
[2024-02-19] MEDS: LACTATED RINGER'S 1,000 ML IV SCH (16:45)
[2024-02-19] MEDS ORDERED: diphenhdrAMINE HCL 50 MG/1 ML VL IV PRN (19:00)
[2024-02-19] MEDS: chlordiazePOXIDE HCL 25 MG CAP PO ONE (19:00)
[2024-02-19] MEDS ORDERED: NALOXONE HCL 0.4 MG/ML VIAL IV PRN (19:00)
[2024-02-19] MEDS ORDERED: ONDANSETRON HCL 4 MG/2 ML VIAL IV PRN (19:00)
[2024-02-19] MEDS ORDERED: DexAMETHasone SOD PHOS 10MG/1ML VIAL INJ IV PRN (19:00)
[2024-02-19] MEDS: chlordiazePOXIDE HCL 25 MG CAP PO SCH (20:12)
[2024-02-19] MEDS: ENOXAPARIN SOD 30 MG/0.3 ML SYRINGE SC SCH (22:29)
[2024-02-20] VITALS (19 sets, daily range): BP systolic 90–129; BP diastolic 56–91; PULSE 60–97; RESP 16–18; TEMP 97.4–98.2; O2SAT 93–100
[2024-02-20] MEDS: chlordiazePOXIDE HCL 25 MG CAP PO SCH ×2 (09:58→22:00)
[2024-02-20] MEDS: KETOROLAC TROMETH 30 MG/ML 1ML VIAL IV PRN (10:14)
[2024-02-21] VITALS (9 sets, daily range): BP systolic 83–163; BP diastolic 52–82; PULSE 57–106; RESP 16–18; TEMP 97.5–98.4; O2SAT 91–99
[2024-02-21] MEDS ORDERED: chlordiazePOXIDE HCL 25 MG CAP PO SCH (10:00)
[2024-02-21] MEDS ORDERED: VANCOMYCIN PER PHARMACY 0 MG IV SCH (10:15)
[2024-02-21] MEDS: VANCOMYCIN 1GM/200ML 200 ML IV SCH (11:26)
[2024-02-21 14:36] LABS: Basophils # (auto) 0 10 ^3/uL (0-0.2); Basophils % (auto) 0.1 % (0.0-2.0); Eosinophils # (auto) 0 10 ^3/uL (0-0.8); Eosinophils % (auto) 0.4 % (0.0-7.0); Hematocrit 21.9 % (41.0-53.0); Hemoglobin 7.5 g/dL (13.5-17.5); Lymphocytes # (auto) 1.4 10 ^3/uL (0.4-5.4); Lymphocytes % (auto) 21.4 % (10.0-50.0); Mean Corpuscular Hemoglobin 35.9 pg (28.0-32.0); Mean Corpuscular Hgb Conc. 34.3 g/dL (32.0-36.0); Mean Corpuscular Volume 104.9 fL (80.0-100.0); Monocytes # (auto) 0.4 10 ^3/uL (0-1.3); Monocytes % (auto) 6.5 % (0.0-12.0); Neutrophils # (auto) 4.8 10 ^3/uL (1.6-8.6); Neutrophils % (auto) 71.6 % (37.0-80.0); Nucleated Red Blood Cells % 0.1 %; Red Blood Cells 2.08 10^6/uL (4.5-5.90); Red Cell Distribution Width 17.8 % (11.8-14.3); White Blood Cell 6.7 10^3/uL (4.4-10.8)
[2024-02-21 15:02] LABS: INR 0.99 (0.9-1.15); Partial Thromboplastin Time 29.2 SEC (24.5-34.5); Prothrombin Time 10.5 sec (9.3-11.8)
[2024-02-21 17:08] LABS: COVID19 ANTIGEN SOFIA FIA NEGATIVE (NEGATIVE)
[2024-02-21] MEDS ORDERED: LIDOCAINE 1% (LOCAL ANESTH.) PF 5ml SDV ID ONE (19:45)
[2024-02-21] MEDS: chlordiazePOXIDE HCL 25 MG CAP PO SCH (21:40)
[2024-02-21] MEDS: SODIUM CHLOR 0.9% PF (SALINE LOCK) 10ML VIAL/SYR IV SCH (21:41)
[2024-02-22 01:00] VITALS: BP 121/75; PULSE 90; RESP 18; TEMP 98.6; O2SAT 97
[2024-02-22 05:00] VITALS: BP 115/72; PULSE 100; RESP 20; TEMP 98.6; O2SAT 98
[2024-02-22 08:03] VITALS: PULSE 91
[2024-02-22 09:04] VITALS: BP 126/74; PULSE 92; RESP 20; TEMP 98.2; O2SAT 99
[2024-02-22 14:48] VITALS: BP 133/75; PULSE 93; RESP 20; TEMP 98.3; O2SAT 98
[2024-02-22 15:15] VITALS: BP 133/75; PULSE 93; RESP 20; TEMP 98.3; O2SAT 98
[2024-02-23] MEDS ORDERED: chlordiazePOXIDE HCL 25 MG CAP PO SCH (07:00)
== END 2024-02-22 16:50 | DRG 480 ==
LOC: EDBD 15:16 → ER 15:16 → OVERFLOW 22:04 → WEST WING 02-17 13:02 → TELE-WESTW 02-17 18:23 → WEST WING 02-22 13:40
PROVIDERS: ADMIT Nurse Practitioner; ATTEND Family Medicine
PROC: 0QS604Z Reposition Right Upper Femur with Internal Fixation Device, Open Approach (ICD-10-PCS; principal; 2024-02-19 16:32)
PROC: 02HV33Z Insertion of Infusion Device into Superior Vena Cava, Percutaneous Approach (ICD-10-PCS; 2024-02-21)
PROC: B548ZZA Ultrasonography of Superior Vena Cava, Guidance (ICD-10-PCS; 2024-02-21)
DX: S72.141A Displaced intertrochanteric fracture of right femur, initial encounter for closed fracture (principal); J69.0 Pneumonitis due to inhalation of food and vomit; J44.0 Chronic obstructive pulmonary disease with (acute) lower respiratory infection; J44.1 Chronic obstructive pulmonary disease with (acute) exacerbation; Z68.1 Body mass index [BMI] 19.9 or less, adult; E11.9 Type 2 diabetes mellitus without complications; R62.7 Adult failure to thrive; F32.A Depression, unspecified; Z20.822 Contact with and (suspected) exposure to COVID-19; I10 Essential (primary) hypertension; W01.0XXA Fall on same level from slipping, tripping and stumbling without subsequent striking against object, initial encounter; K21.9 Gastro-esophageal reflux disease without esophagitis; F41.9 Anxiety disorder, unspecified; D72.829 Elevated white blood cell count, unspecified; N40.0 Benign prostatic hyperplasia without lower urinary tract symptoms; E78.5 Hyperlipidemia, unspecified; Z90.49 Acquired absence of other specified parts of digestive tract; Z87.891 Personal history of nicotine dependence; Z82.49 Family history of ischemic heart disease and other diseases of the circulatory system; Z82.3 Family history of stroke; Z80.8 Family history of malignant neoplasm of other organs or systems; Z79.01 Long term (current) use of anticoagulants; Z99.81 Dependence on supplemental oxygen; Y93.89 Activity, other specified; Y92.89 Other specified places as the place of occurrence of the external cause; Y99.8 Other external cause status
CPT/HCPCS: 36415; 70450; 71045; 71250; 71275; 72125; 73502; 74176; 76000; 80053; 80307; 80320; 81001; 82565; 83605; 83880; 84484; 85025; 85379; 85610; 85730; 86850; 86900; 86901; 87040; 87077; 87186; 87426; 93005; 93306; 93970; 97110; 97116; 97163; 97530; A4565; G0378; J1100; J1885; J1956; J2250; J2405; J2543; J3490